=== PATIENT | male | born 1945 | race Hispanic/Latino ===

== ENCOUNTER 2017-06-02 06:21 | Day surgery (SDC) | payer MEDICARE, BC ==
[2016-02-22 17:43] VITALS: BMI 33.4
[2017-06-02] MEDS ORDERED: Iodixanol 320 MG/ML 200 ML BOTTLE IV ONE (07:19)
[2017-06-02] MEDS ORDERED: Lidocaine 2% Inj (20ml) ONE (07:19)
[2017-06-02] MEDS ORDERED: Midazolam 2 MG/2 ML VIAL ONE ×2 (07:19→08:27)
[2017-06-02] MEDS ORDERED: HEPARIN SODIUM/NS 2,000 ML IV ONE (07:19)
[2017-06-02] MEDS ORDERED: Sodium Chloride 0.9% 1,000 ML IV SCH (09:15)
[2017-06-02] MEDS ORDERED: diltiaZEM 240 mg/24 Hours CD Cap PO SCH (10:00)
[2017-06-02] MEDS ORDERED: Insulin Reg-HIGH-Coverage SC SCH (11:30)
[2017-06-02 16:26] VITALS: RESP 18
[2017-06-02 16:37] VITALS: PULSE 72
[2017-06-02 17:33] VITALS: BP 168/73; TEMP 99.3; O2SAT 95
--- NOTE | 2017-06-02 21:45 | CARD ---
APPROVED REPORT EKG Measurement Heart [id number] <Conclusion> Normal sinus rhythm Right bundle branch block Possible Inferior infarct, age undetermined Abnormal ECG
--- NOTE | 2017-06-03 08:13 | CARDCATH ---
PROCEDURE DATE: 06/02/2017 PROCEDURES: 1. Left and right coronary angiography. 2. Percutaneous coronary intervention of mid right coronary artery. 3. Left ventriculography. 4. Right femoral arteriography. 5. Angio-Seal deployment. HISTORY: This is a 71-year-old male with known coronary artery disease, status post multivessel PCI, who has had worsening exertional chest discomfort. Cardiac catheterization was advised. INDICATIONS: As above. FINDINGS: HEMODYNAMICS: Aortic pressure was 130/70. Left ventricular pressure of 130/16. CORONARY ANATOMY: 1. Left mainstem had a 30-40% proximal stenosis. 2. Left anterior descending artery had evidence of moderate calcification. The previously placed stent had evidence of mild diffuse in-stent restenosis. The septal branch had a 90% ostial stenosis as well. The diagonal branch had evidence of moderate diffuse disease. The distal left anterior descending artery had unchanged, severe 90% stenosis in the apical segment. The vessel was fairly small in that segment. 3. Left circumflex artery had evidence of patent stents in the mid segment of the vessel. There was evidence of 40% in-stent restenosis distally. The ostial circumflex had a 50% stenosis as well. 4. The right coronary artery was large and dominant. This had evidence of diffuse 40% narrowing in its proximal segment. The mid segment of the vessel had a long stented segment, which had a 90% in-stent restenosis in its distal region. The distal right coronary artery stent was patent. The posterior descending artery had mild irregularities. The posterolateral branch was fairly small. LEFT VENTRICULOGRAPHY: A hand injection was performed in the left ventricle revealing evidence of mild diffuse LV hypokinesis with an overall ejection fraction of 50%. CORONARY INTERVENTION: Given the above findings, attempted PCI of the RCA in-stent restenosis was then performed. 5000 units of intervenous heparin was administered and ACT was greater than 290 seconds during the procedure. The lesion in the RCA was successfully crossed with the use of a [place] wire. Following this, initial inflations were performed with a 3.0 x 15-mm NC balloon to 16 atmosphere for 45 seconds. Following this, the balloon was withdrawn and a 3.5 x 18-mm Resolute drug-eluting stent was advanced and inflated to 14 atmospheres for 45 seconds. There was 0% residual stenosis following the intervention. The moderate disease in proximal RCA remains relatively unchanged. MIGUEL grade 3 flow is present before and after the intervention. RIGHT FEMORAL ARTERIOGRAPHY: The right femoral arteriogram was performed in the CHAVEZ projection. This revealed no evidence of significant disease and appropriate level of arterial puncture. The puncture site was then closed with deployment of an AngioSeal device. CONCLUSIONS: 1. Severe RCA in-stent restenosis. 2. Moderate left main LAD and circumflex system disease. 3. Mildly reduced LV systolic function. 4. Successful PCI of RCA with drug-eluting stent placement as described above. RECOMMENDATIONS: Intensify medical therapy including diabetes control and smoking abstinence was strongly encouraged. Aspirin and Plavix therapy will be continued indefinitely. Followup stress testing to monitor his left coronary system disease. It is advised that should this progress, ultimate bypass surgery maybe necessary. Judah Baldwin MD cc: .
== END 2017-06-02 17:43 | disposition home or self-care (01) ==
LOC: CATH 06:21 → 2RNO 10:09 → CATH 17:43
PROVIDERS: ATTEND Internal Medicine Cardiovascular Disease
DX: T82.858A Stenosis of other vascular prosthetic devices, implants and grafts, initial encounter (principal); I25.10 Atherosclerotic heart disease of native coronary artery without angina pectoris; I10 Essential (primary) hypertension; I25.2 Old myocardial infarction; Y84.8 Other medical procedures as the cause of abnormal reaction of the patient, or of later complication, without mention of misadventure at the time of the procedure
CPT/HCPCS: 36415; 82948; 85175; 86850; 86900; 93005; 93458; 99152; 99153; C1725; C1760; C1769 ×2; C1874; C1887 ×3; C2629; C9600; J1644 ×2; J2250; J3010; J7030; J7040

== ENCOUNTER 2018-01-25 10:03 | Inpatient (IN) | payer MEDICARE, BC ==
[2018-01-25 10:03] VITALS: BMI 33.4
[2018-01-25] MEDS ORDERED: Sodium Chloride 0.9% 500 ML IV STA (10:53)
[2018-01-25] MEDS ORDERED: Morphine 4 mg/ml ISec IVP STA (10:53)
--- NOTE | 2018-01-25 11:12 | ED PDOC ---
Arrival/HPI - General Historian: Patient - History of Present Illness Narrative History of Present Illness (Text): 01/25/18 10:57 Pt is a 72 yo M with pmhx of CAD s/p 7 stents, HTN, HLD, DM, CHF who presents for abd pain. He states that the pain began about 3 days ago, which is now localized to the RLQ. He is obviously uncomfortable and wincing in pain. He states that the pain is a 10/10 without radiation and has twinges of pain that makes the pain more intense. Pt states that he is on ASA and clopidogrel and is complaint with his medications. He states that the pain worsened last night when it became a 10/10 and continued to be so until now. He denies fevers, chills, nausea, chest pain, SOB or cough. He admits to one bout of emesis earlier this AM. Pmhx:CAD s/p 7 stents, HTN, HLD, DM, CHF Pshx: Hernia repair Meds: ASA, clopidogrel All: NKDA Soc: Quit smoking 1 mo ago, no etoh or illicit drug use Fam Hx: Denies Time/Duration: < week Symptom Onset: Gradual Symptom Course: Worsening Severity Level: 10 <Elke Rivas - Last Filed: 01/25/18 14:04> <Pieter Rome - Last Filed: 01/25/18 16:19> - General Time Seen by Provider: 01/25/18 10:04 Past Medical History - Provider Review Nursing Documentation Reviewed: Yes - Infectious Disease Hx of Infectious Diseases: None - Tetanus Immunization Tetanus Immunization: Unknown - Cardiac Hx Pacemaker: No - Pulmonary Hx Respiratory Disorders: Yes (SMOKES 1 PPD QUIT 02-18-16) Hx Asthma: Yes - Neurological Hx Paralysis: No - HEENT Hx HEENT Disorder: Yes (WEARS RX GLASSES,H/O OTITIS EXTERNA) - Renal Hx Renal Disorder: No - Endocrine/Metabolic Hx Endocrine Disorders: Yes (diabetes takes po and insulin) Hx Diabetes Mellitus Type 2: Yes - Hematological/Oncological Hx Blood Transfusions: No Hx Blood Transfusion Reaction: No - Integumentary Hx Dermatological Disorder: No - Musculoskeletal/Rheumatological Hx Musculoskeletal Disorders: No - Gastrointestinal Hx Gastrointestinal Disorders: Yes (GI BLEED) Other/Comment: pt has new right and left inguinal hernias and umbilical,INGUINAL HERNIA REPAIR - Genitourinary/Gynecological Hx Genitourinary Disorders: Yes Hx Prostate Problems: Yes (ca WITH METS TO BLADDER?) - Psychiatric Hx Emotional Abuse: No Hx Physical Abuse: No Hx Substance Use: No - Surgical History Other/Comment: carpal tunnel sx right hand 5 or 6 yrs ago. Pt was hurt on the job in 1994 fx pelvis, fx ribs, fx left wrist. As a result he has chronic lower back pain and several herniated discs, he can't. remember how many, has 3 herniated discs in his neck, has received several epidurals since then, and some times his legs "give out" - Anesthesia Hx Anesthesia: Yes Hx Anesthesia Reactions: No Hx Malignant Hyperthermia: No - Suicidal Assessment Feels Threatened In Home Enviroment: No <Elke Rivas - Last Filed: 01/25/18 14:04> Family/Social History - Physician Review Nursing Documentation Reviewed: Yes Family/Social History: No Known Family HX Smoking Status: Current Some Days Smoker Hx Alcohol Use: Yes (QIT 1 YR AGO) Hx Substance Use: No Hx Substance Use Treatment: No <Elke Rivas - Last Filed: 01/25/18 14:04> Allergies/Home Meds <Elke Rivas - Last Filed: 01/25/18 14:04> <Pieter Rome - Last Filed: 01/25/18 16:19> Allergies/Adverse Reactions: Allergies No Known Allergies Allergy (Verified 02/22/16 16:26) Home Medications: Home Meds Medication Instructions Recorded Confirmed RX: Aspirin 325 mg PO DAILY 08/08/12 01/25/18 RX: Pantoprazole [Protonix EC Tab] 40 mg PO DAILY 04/19/13 01/25/18 RX: Atorvastatin [Lipitor] 80 mg PO DAILY 03/26/14 01/25/18 RX: Cholecalciferol (Vitamin D3) 1,000 iu PO DAILY 03/26/14 01/25/18 [Vitamin D3] RX: Clopidogrel [Plavix] 75 mg PO DAILY 03/26/14 01/25/18 Insulin Aspart [Novolog] 20 unit SC BID PRN 11/26/15 01/25/18 Lisinopril [Prinivil] 20 mg PO DAILY 11/26/15 01/25/18 Multivitamin [Men's Multi-Vitamin] 1 tab PO DAILY 11/26/15 01/25/18 RX: Insulin Regular [HumuLIN R] 0 unit SQ ACBD 11/26/15 01/25/18 RX: Insulin Glargine, Recombina 100 unit SC DAILY 11/26/15 01/25/18 [Lantus] Trazodone HCl 100 mg PO HS 11/26/15 01/25/18 diltiaZEM [Cardizem] 240 mg PO DAILY 11/26/15 01/25/18 Metoprolol Tartrate [Lopressor] 50 mg PO BID 02/22/16 01/25/18 Simethicone [Gas-X] 80 mg PO Q8H PRN 02/22/16 01/25/18 RX: Brinzolamide [Azopt] 1 drop OD BID 05/31/17 01/25/18 RX: Latanoprost 0.005% Opht 1 drop OD HS 05/31/17 01/25/18 [Xalatan Opht] Review of Systems - Physician Review All systems were reviewed & negative as marked: Yes - Review of Systems Constitutional: absent: Fevers Respiratory: absent: SOB, Cough Cardiovascular: absent: Chest Pain, Palpitations Gastrointestinal: Abdominal Pain (10/10 RLQ), Vomiting (Vomited earlier this morning.). absent: Nausea <Elke Rivas - Last Filed: 01/25/18 14:04> Physical Exam Temperature: Afebrile Blood Pressure: Hypertensive Pulse: Regular Respiratory Rate: Normal Appearance: Positive for: Uncomfortable Pain Distress: Moderate Mental Status: Positive for: Alert and Oriented X 3 - Systems Exam Head: Present: Atraumatic, Normocephalic Pupils: Present: PERRL Extroacular Muscles: Present: EOMI Conjunctiva: Present: Normal Respiratory/Chest: Present: Clear to Auscultation, Good Air Exchange. No: Respiratory Distress, Accessory Muscle Use, Wheezes, Rales Cardiovascular: Present: Regular Rate and Rhythm, Normal S1, S2. No: Murmurs, Rub, Gallop Abdomen: Present: Tenderness (Present in RLQ, upon light palpation. ), Distention, Normal Bowel Sounds, Rebound, Guarding, McBurney's Point Tender, Rovsing's Sign Present (Obturator sign is also positive.) Genitourinary Male: Present: Normal External Genitalia. No: Lesions, Penile Discharge, Testicle Tenderness, Erythema, Testicle Swelling Lower Extremity: Present: Normal Inspection. No: CALF TENDERNESS, Wendy's Sign, Tenderness Neurological: Present: GCS=15, Speech Normal Skin: Present: Warm, Dry, Normal Color. No: Rashes Psychiatric: Present: Alert, Oriented x 3, Normal Insight, Normal Concentration, Normal Affect, Normal Mood <Elke Rivas - Last Filed: 01/25/18 14:04> Vital Signs Reviewed: Yes Vital Signs Temp Pulse Resp BP Pulse Ox 01/25/18 10:45 97.8 F 85 18 198/103 H 98 <Pieter Rome - Last Filed: 01/25/18 16:19> Medical Decision Making ED Course and Treatment: 01/25/18 11:22 Pt is a 72 yo M with pmhx detailed above who presents for RLQ abdominal pain. Pt denies fevers, chills or nausea but has McBurney point tenderness, rovsings sign and obturator sign positive. - CBC - CMP - CT abd/pelvis w/ IV contrast - EKG - Cardiac iso - CXR - PT - PTT - Lipase - mag - UA 01/25/18 12:33 Pt was reassessed at bedside. Pts labs are grossly wnl, with the exception of adolph chappell, which is being repleted with 2gm IV 01/25/18 14:04 CT w/ IV contrast was reported by Radiologist: Acute tip appendicitis. Discussed the result with the pt and consulted and discussed the case with the surgical team. - RAD Interpretation Radiology Orders: 01/25/18 10:52 CHEST PORTABLE [RAD] Stat 01/25/18 10:53 ABD & PELVIS IV CONTRAST ONLY [CT] Stat - Medication Orders Current Medication Orders: Sodium Chloride (Sodium Chloride 0.9%) 500 mls @ 999 mls/hr IV .Q31M STA Stop: 01/25/18 11:23 Discontinued Medications Morphine Sulfate (Morphine) 4 mg IVP STAT STA Stop: 01/25/18 10:54 Ondansetron HCl (Zofran Inj) 4 mg IVP STAT STA Stop: 01/25/18 10:54 <Elke Rivas - Last Filed: 01/25/18 14:04> ED Course and Treatment: 01/25/18 11:30 Impression: 72 year old male presents to the emergency department for abdominal pain that began 3 days ago, now localized in RLQ. Patient Seen with Resident: In agreement with resident note which contains more details about the patient. Patient seen and evaluated with resident. Came up with plan and treatment together. Plan: -- CT of Abdomen/Pelvis -- EKG -- Labs -- CBC (with differential) -- Partial Thromboplastin -- Prothrombin Time -- X-Ray of chest -- Magnesium Sulfate 2gm/50 ml Water -- Morphine -- IV fluids -- Zofran Inj -- Zosyn IVPB -- Urinalysis -- Reassess and disposition Prior Visits: Notes and results from previous visits were reviewed. Progress Notes: 01/25/18 16:18 ct shows appendcitis updated pmd and surgery. - Lab Interpretations Lab Results: 01/25/18 11:19 01/25/18 11:19 Lab Results 01/25/18 11:19: Sodium 139, Potassium 3.9, Chloride 98, Carbon Dioxide 31, Anion Gap 13, BUN 14, Creatinine 0.9, Est GFR ( Amer) > 60, Est GFR (Non-Af Amer) > 60, Random Glucose 294 H, Calcium 9.5, Magnesium 0.9 L*, Total Bilirubin 0.8, AST 57, ALT 69 H, Alkaline Phosphatase 96, Lactate Dehydrogenase 561, Total Creatine Kinase 100, Troponin I 0.01 D, Total Protein 7.6, Albumin 4.3, Globulin 3.4, Albumin/Globulin Ratio 1.3, Lipase 37 01/25/18 11:19: PT 14.8 H, INR 1.28, APTT 30.6 01/25/18 11:19: WBC 8.7 D, RBC 4.48, Hgb 13.7 L, Hct 40.2 L, MCV 89.7, MCH 30.6, MCHC 34.1, RDW 13.1, Plt Count 157, MPV 12.2 H, Gran % 81.1 H, Lymph % (Auto) 11.5 L, [place] % (Auto) 7.0 H, Eos % (Auto) 0.3 L, Baso % (Auto) 0.1, Gran # 7.06 H, Lymph # (Auto) 1.0 L, [place] # (Auto) 0.6, Eos # (Auto) 0.0, Baso # (Auto) 0.01 - RAD Interpretation Narrative RAD Interpretations (Text): X-ray of chest reviewed by radiologist, shows: Dictator : Abdirahman Reyes MD Report Date : 01/25/2018 12:13:48 FINDINGS: LUNGS: No active pulmonary disease. PLEURA: No significant pleural effusion identified, no pneumothorax apparent. CARDIOVASCULAR: Mild cardiomegaly OSSEOUS STRUCTURES: No significant abnormalities. VISUALIZED UPPER ABDOMEN: Normal. OTHER FINDINGS: None. IMPRESSION: No active disease. Radiology Orders: 01/25/18 10:52 CHEST PORTABLE [RAD] Stat 01/25/18 10:53 ABD & PELVIS IV CONTRAST ONLY [CT] Stat Room Worker: Radiologist - Medication Orders Current Medication Orders: Magnesium Sulfate (Magnesium Sulfate 2 Gm/50 Ml Water) 2 gm in 50 mls @ 50 mls/hr IVPB ONCE ONE Stop: 01/25/18 12:58 Discontinued Medications Sodium Chloride (Sodium Chloride 0.9%) 500 mls @ 999 mls/hr IV .Q31M STA Stop: 01/25/18 11:23 Last Admin: 01/25/18 11:22 Dose: 999 mls/hr eMAR Start Stop Document 01/25/18 11:22 [email or web address] (Rec: 01/25/18 11:23 [email or web address] [id number]) Intravenous Solution Start Date 01/25/18 Start Time 11:23 Piperacillin Sod/Tazobactam Sod (Zosyn 3.375 In Ns 100ml) 100 mls @ 200 mls/hr IVPB STAT STA; Protocol Stop: 01/25/18 11:47 Morphine Sulfate (Morphine) 4 mg IVP STAT STA Stop: 01/25/18 10:54 Last Admin: 01/25/18 11:23 Dose: 4 mg MAR Pain Assessment Document 01/25/18 11:23 [email or web address] (Rec: 01/25/18 11:23 [email or web address] [id number]) Pain Reassessment Is this a pain reassessment? No Sleep Is patient sleeping during reassessment? No Presence of Pain Presence of Pain Yes Pain Scale Used Protocol: PSCALES Pain Scale Used Numeric Location Left, Right or Bilateral Right Pain Location Body Site Abdomen Description Description Constant Intensity of Pain at present 9 Pain Behavior Facial Grimacing Aggravating Factors Changing Position Alleviating Factors/Management Medication Techniques Alleviating Factors Medication IVP Administration Document 01/25/18 11:23 [email or web address] (Rec: 01/25/18 11:23 [email or web address] [id number]) Charges for Administration # of IVP Administrations 1 Morphine Sulfate (Morphine) 2 mg IVP STAT STA Stop: 01/25/18 12:44 Ondansetron HCl (Zofran Inj) 4 mg IVP STAT STA Stop: 01/25/18 10:54 Last Admin: 01/25/18 11:23 Dose: 4 mg IVP Administration Document 01/25/18 11:23 [email or web address] (Rec: 01/25/18 11:23 [email or web address] [id number]) Charges for Administration # of IVP Administrations 1 <Pieter Rome - Last Filed: 01/25/18 16:19> - 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 MD/DO has examined the patient and agrees with the treatment plan. - Scribe Statement The provider has reviewed the documentation as recorded by the Rogeribvipin Luciano All medical record entries made by the Bertram were at my direction and personally dictated by me. I have reviewed the chart and agree that the record accurately reflects my personal performance of the history, physical exam, medical decision making, and the department course for this patient. I have also personally directed, reviewed, and agree with the discharge instructions and disposition. <Pieter Rome - Last Filed: 01/25/18 16:19> Disposition/Present on Arrival - Present on Arrival History of DVT/PE: No History of Uncontrolled Diabetes: No Urinary Catheter: No History of Decub. Ulcer: No History Surgical Site Infection Following: None <Elke Rivas - Last Filed: 01/25/18 14:04> - Present on Arrival Any Indicators Present on Arrival: No - Disposition Have Diagnosis and Disposition been Completed?: Yes Disposition Time: 01:00 <Pieter Rome - Last Filed: 01/25/18 16:19> - Disposition Diagnosis: Acute appendicitis, Hypomagnesemia Disposition: HOSPITALIZED Patient Problems: Current Active Problems Problem Status Onset Acute appendicitis Acute Hypomagnesemia Acute Condition: FAIR
[2018-01-25] MEDS ORDERED: Piperacillin/Tazobact 3.375 gm 100 ML IVPB STA (11:18)
[2018-01-25 11:34] LABS: BASO # 0.01 K/mm3 (0.0-2.0); BASO % 0.1 % (0.0-3.0); EOS % 0.3 % (1.5-5.0); GRAN # 7.06 (1.4-6.5); GRAN % 81.1 % (50.0-68.0); HEMOGLOBIN 13.7 g/dL (14.0-18.0); LYMPH % 11.5 % (22.0-35.0); MEAN CELL VOLUME 89.7 fl (80.0-105.0); MEAN CORPUSCULAR HEMOGLOBIN 30.6 pg (25.0-35.0); MEAN CORPUSCULAR HGB CONC 34.1 g/dl (31.0-37.0); MEAN PLATELET VOLUME 12.2 fl (7.0-11.0); MONO # 0.6 (0.1-0.6); RBC 4.48 10^6/uL (3.5-6.1); RED CELL DISTRIBUTION WIDTH 13.1 % (11.5-14.5); WHITE BLOOD COUNT 8.7 10^3/ul (4.5-11.0)
[2018-01-25 11:41] LABS: INR 1.28; PARTIAL THROMBOPLASTIN TIME 30.6 Seconds (25.1-36.5); PROTHROMBIN TIME 14.8 SECONDS (9.4-12.5)
[2018-01-25 11:55] LABS: TROPONIN I 0.01 ng/mL
[2018-01-25 11:57] LABS: ALB/GLOB RATIO 1.3 (1.1-1.8); ALBUMIN 4.3 g/dL (3.0-4.8); ALT/SGPT 69 U/L (7-56); AST/SGOT 57 U/L (17-59); BLOOD UREA NITROGEN 14 mg/dL (7-21); CALCIUM 9.5 mg/dL (8.4-10.5); GFR NON-AFRICAN AMERICAN > 60; LIPASE 37 U/L (23-300)
[2018-01-25] MEDS ORDERED: Magnesium Sulfate 2 gm/50 ml 2 GM/50 ML BAG IVPB ONE (11:59)
--- NOTE | 2018-01-25 12:17 | RAD ---
Date of service: 01/25/2018 HISTORY: abd pain COMPARISON: 02/22/2016 FINDINGS: LUNGS: No active pulmonary disease. PLEURA: No significant pleural effusion identified, no pneumothorax apparent. CARDIOVASCULAR: Mild cardiomegaly OSSEOUS STRUCTURES: No significant abnormalities. VISUALIZED UPPER ABDOMEN: Normal. OTHER FINDINGS: None. IMPRESSION: No active disease.
[2018-01-25] MEDS ORDERED: Morphine 2 mg/ml ISec IVP STA (12:43)
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
--- NOTE | 2018-01-25 13:46 | CT ---
Date of service: 01/25/2018 PROCEDURE: CT Abdomen and Pelvis with contrast HISTORY: Right lower quadrant pain COMPARISON: 11/20/2016. TECHNIQUE: CT scan of the abdomen and pelvis was performed after administration of intravenous contrast. Oral contrast was not administered. Coronal and sagittal reformatted images were obtained. Contrast dose: 150 mL Omnipaque 350 Radiation dose: Total exam DLP = 1102.78 mGy-cm. This CT exam was performed using one or more of the following dose reduction techniques: Automated exposure control, adjustment of the mA and/or kV according to patient size, and/or use of iterative reconstruction technique. FINDINGS: LOWER THORAX: There is dependent atelectasis and fibrotic changes in the lung bases. LIVER: Mild hepatomegaly and fatty liver. No gross lesion or ductal dilatation. GALLBLADDER AND BILE DUCTS: No calcified gallstones. PANCREAS: Normal in size and echotexture. No gross lesion or ductal dilatation. SPLEEN: Normal in size. ADRENALS: And appearance no discrete nodule. KIDNEYS AND URETERS: Normal in size with homogeneous enhancement. No hydronephrosis. No solid mass. VASCULATURE: Atherosclerotic aortic calcifications. No aortic aneurysm. BOWEL: The small bowel loops are normal in caliber. The colon is unremarkable. No bowel dilatation or obstruction. APPENDIX: The deep of the appendix is fluid-filled, distended and measures 12 mm in diameter. There is mild wall thickening and an appendicolith in the distal appendix. There are mild inflammatory changes in the surrounding fat. No evidence for perforation or abscess. PERITONEUM: No free fluid. No free air. LYMPH NODES: No enlarged lymph nodes. BLADDER: Unremarkable. REPRODUCTIVE: Prostate gland is normal in size. BONES: No acute fracture. Advanced multilevel degenerative disc disease. OTHER FINDINGS: Bilateral fat containing inguinal hernias, larger on the left. IMPRESSION: Findings are most compatible with acute tip appendicitis. No micro perforation or abscess. Important findings were discussed with Dr. Pieter Rome on 01/25/2018 at 1:40 p.m.
[2018-01-25] MEDS ORDERED: Lactated Ringer's 1,000 ML IV SCH ×2 (14:45→15:24)
[2018-01-25] MEDS: Morphine 4 mg/ml ISec IVP PRN ×2 (15:30→20:18)
--- NOTE | 2018-01-25 15:40 | CARD ---
APPROVED REPORT Date of service: 01/25/2018 EKG Measurement Heart [id number] <Conclusion> Normal sinus rhythm Right bundle branch block Inferior infarct, age undetermined Abnormal ECG
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
[2018-01-25] MEDS: Insulin Reg-MEDIUM-Coverage SC SCH ×2 (16:39→22:11)
[2018-01-25] MEDS ORDERED: Metoprolol 1 mg/ml Inj IVP SCH (18:00)
[2018-01-25] MEDS: metroNIDAZOLE IV 500 mg/100 ml 500 MG/100 ML BAG IVPB SCH (21:25)
[2018-01-25] MEDS ORDERED: Piperacillin/Tazobact 3.375 gm 100 ML IVPB SCH (22:00)
[2018-01-26] MEDS: Morphine 4 mg/ml ISec IVP PRN ×2 (01:43→08:17)
[2018-01-26 02:10] LABS: URINE BILIRUBIN NEGATIVE (NEGATIVE); URINE BLOOD NEGATIVE (NEGATIVE); URINE GLUCOSE (UA) NEGATIVE (NEGATIVE); URINE LEUKOCYTE ESTERASE NEGATIVE Leu/uL (NEGATIVE); URINE PROTEIN TRACE mg/dL (<30 mg/dL); URINE UROBILINOGEN 0.2 E.U./dL (<1 E.U./dL)
[2018-01-26 02:15] LABS: URINE APPEARANCE CLEAR (CLEAR); URINE COLOR YELLOW (YELLOW)
[2018-01-26 02:30] LABS: URINE EPITHELIAL CELLS 0 - 2 /hpf (0-5); URINE RBC 0 - 2 /hpf (0-2); URINE WBC 0 - 2 /hpf (0-6)
[2018-01-26 02:31] LABS: URINE BACTERIA RARE (NEG)
[2018-01-26] MEDS: metroNIDAZOLE IV 500 mg/100 ml 500 MG/100 ML BAG IVPB SCH ×3 (05:02→21:57)
[2018-01-26] MEDS: Piperacillin/Tazobact 3.375 gm 100 ML IVPB SCH ×3 (05:03→21:58)
[2018-01-26 06:27] LABS: BASO # 0.01 K/mm3 (0.0-2.0); BASO % 0.2 % (0.0-3.0); EOS # 0.1 (0.0-0.7); EOS % 0.9 % (1.5-5.0); GRAN # 5.04 (1.4-6.5); GRAN % 76.3 % (50.0-68.0); HEMOGLOBIN 12.3 g/dL (14.0-18.0); LYMPH % 15.3 % (22.0-35.0); MEAN CELL VOLUME 91.8 fl (80.0-105.0); MEAN CORPUSCULAR HEMOGLOBIN 30.4 pg (25.0-35.0); MEAN CORPUSCULAR HGB CONC 33.2 g/dl (31.0-37.0); MEAN PLATELET VOLUME 11.6 fl (7.0-11.0); MONO # 0.5 (0.1-0.6); MONO % 7.3 % (1.0-6.0); RBC 4.04 10^6/uL (3.5-6.1); RED CELL DISTRIBUTION WIDTH 13.7 % (11.5-14.5); WHITE BLOOD COUNT 6.6 10^3/ul (4.5-11.0)
[2018-01-26 07:09] LABS: ALB/GLOB RATIO 1.2 (1.1-1.8); ALBUMIN 3.7 g/dL (3.0-4.8); ALT/SGPT 58 U/L (7-56); AST/SGOT 45 U/L (17-59); BLOOD UREA NITROGEN 14 mg/dL (7-21); CALCIUM 8.8 mg/dL (8.4-10.5); GFR NON-AFRICAN AMERICAN > 60
[2018-01-26] MEDS: Insulin Reg-MEDIUM-Coverage SC SCH ×3 (08:09→17:04)
[2018-01-26] MEDS: Metoprolol 1 mg/ml Inj IVP SCH ×3 (09:19→21:56)
--- NOTE | 2018-01-26 10:29 | PN ---
DATE: 01/26/2018 SUBJECTIVE: The patient was admitted yesterday with abdominal pain. The patient was diagnosed with acute appendicitis. The patient has past history of coronary artery disease, diabetes mellitus. The patient also has history of renal colic. He has had right inguinal hernia surgery in the past. The patient also has history of carpal tunnel surgery. HE HAS NO KNOWN ALLERGIES. Seen this morning. The patient is on antibiotic treatment. PHYSICAL EXAMINATION: VITAL SIGNS: Pulse is 83, blood pressure 144/80, respirations are 20, temperature 98.6. HEENT: Head is normocephalic. NECK: The thyroid is not enlarged. Carotid pulses are present. LUNGS: Trachea central. Breath sounds are vesicular. Bilateral diminished breath sounds in the lower part of chest. ABDOMEN: Soft, tenderness. The patient has tenderness in the right lower quadrant with rebound tenderness. The patient also has a positive Rovsing sign, which is characteristic of acute right-sided abdominal pain when compressing the left side of the abdomen. RECTAL: Deferred. CENTRAL NERVOUS SYSTEM: Conscious, rational, oriented. MEDICATIONS: Consist of Flagyl 500 mg every 8 hours. The patient is on insulin coverage. He is getting Ringer's lactate IV. He is n.p.o. He is on metoprolol 5 mg IV b.i.d. The patient is on morphine for pain, pantoprazole IV 40 mg daily. The patient gets Zosyn every 8 hours. ASSESSMENT AND PLAN: The patient was seen by Dr. Baldwin, the display screen fabricator and Dr. Nixon, infectious disease market research consultant. Dr. Licona is his general surgeon on the case. The patient is scheduled to have appendectomy done this morning at 10:30. The patient's clinical condition seemed to be stable at this time. He will get platelet transfusion prior to the surgery. We will follow up. Oliva Childers MD MADHURI
[2018-01-26] MEDS ORDERED: Bupivacaine 0.5% 50 ML IJ ONE (11:10)
[2018-01-26] MEDS ORDERED: Propofol 10 mg/ml Inj (20 ML) ONE (11:32)
[2018-01-26] MEDS ORDERED: Phenylephrine 10 mg/ml Inj ONE (11:33)
[2018-01-26] MEDS ORDERED: ePHEDrine 50 mg/ml Inj ONE (11:33)
[2018-01-26] MEDS ORDERED: Etomidate 20 mg/10ml Inj IV ONE (11:33)
[2018-01-26] MEDS ORDERED: Rocuronium 10 mg/ml (5 ml) ONE (11:34)
[2018-01-26] MEDS ORDERED: Sevoflurane - Inhalation Anesthetic Liq (250 ml) ONE (11:34)
[2018-01-26] MEDS ORDERED: Succinylcholine 200 mg/10 ml Inj IV ONE (11:34)
[2018-01-26] MEDS ORDERED: Labetalol 5 mg/ml Inj 20ML ONE (12:20)
[2018-01-26] MEDS ORDERED: Neostigmine Methylsulfate 3mg/3ml Syringe IV ONE (12:46)
--- NOTE | 2018-01-26 13:29 | PCM.SURG1 ---
Surgeon's Initial Post Op Note - Surgeon's Notes Surgeon: Dr. Licona Cullet Trucker: Dr. Francisco PGY3, [facility] Type of Anesthesia: General Endo Pre-Operative Diagnosis: acute appendicitis Operative Findings: same Post-Operative Diagnosis: same Operation Performed: laparoscopic appendectomy Specimen/Specimens Removed: appendix. mesoappendix. fecalith Estimated Blood Loss: EBL {In ML}: 2 Blood Products Given: N/A Drains Used: No Drains Post-Op Condition: Good Date of Surgery/Procedure: 01/26/18 Time of Surgery/Procedure: 12:30
[2018-01-26] MEDS ORDERED: Magnesium Sulfate 2 gm/50 ml 2 GM/50 ML BAG IVPB ONE (13:33)
[2018-01-26] MEDS ORDERED: Sodium Chloride 0.9% 1,000 ML IV SCH (13:45)
[2018-01-26] MEDS ORDERED: HYDROmorphone 0.5 mg/0.5 ml ISec IVP PRN (13:46)
[2018-01-26] MEDS ORDERED: HYDROmorphone 0.5 mg/0.5 ml ISec ONE ×2 (14:15→14:32)
[2018-01-26] MEDS ORDERED: Piperacillin/Tazobact 3.375 gm Inj IVPB ONE (14:28)
[2018-01-26] MEDS ORDERED: HYDROmorphone 0.5 mg/0.5 ml ISec IVP ONE (14:30)
[2018-01-26 16:48] LABS: HEMOGLOBIN 12.8 g/dL (14.0-18.0); MEAN CELL VOLUME 92.8 fl (80.0-105.0); MEAN CORPUSCULAR HEMOGLOBIN 30.6 pg (25.0-35.0); MEAN PLATELET VOLUME 11.1 fl (7.0-11.0); RBC 4.18 10^6/uL (3.5-6.1); RED CELL DISTRIBUTION WIDTH 13.7 % (11.5-14.5); WHITE BLOOD COUNT 5.6 10^3/ul (4.5-11.0)
[2018-01-26 18:41] LABS: HEPATITIS B SURFACE AG Negative (NEGATIVE)
[2018-01-26 18:47] LABS: HEPATITIS B CORE AB NEGATIVE (NEGATIVE)
[2018-01-26 18:58] LABS: HEPATITIS C ANTIBODY NEGATIVE (NEGATIVE)
[2018-01-26] MEDS: HYDROmorphone 2 mg/ml ISec IVP PRN (20:10)
[2018-01-26 20:16] LABS: HEPATITIS A IGM NEGATIVE (NEGATIVE)
--- NOTE | 2018-01-26 21:29 | CON ---
DATE: 01/26/2018 The patient is in bed in no acute distress, was seen earlier today in 364, bed 2. CHIEF COMPLAINT: Right-sided abdominal pain x3 days. HISTORY OF PRESENT ILLNESS: This is a 72-year-old male with history of diabetes mellitus, coronary artery disease, congestive heart failure, depression, morbid obesity with a BMI of 33, history of high-grade urethral cancer, bladder cancer, history of renal insufficiency, hypertension, hyperlipidemia, history of MRSA, chest wall abscess, and folliculitis, who is admitted with right-sided abdominal pain, some nausea, but no vomiting, low-grade fever. No chest pain. No shortness of breath. REVIEW OF SYSTEMS: A 12-point review of systems performed. No headaches. No blurred vision. No neck pain. No sore throat. No dysuria or frequency. No new joint or rash. No new back pain. PAST MEDICAL HISTORY: Significant for congestive heart failure, coronary artery disease, diabetes, depression, high-grade urethral cancer, bladder cancer, renal insufficiency, hypertension, hyperlipidemia, and MRSA chest wall infection. PAST SURGICAL HISTORY: Significant for a procedure by Dr. Miller, cardiac cath, stent placement, and ventral hernia repair. ALLERGIES: THE PATIENT HAS NO KNOWN ALLERGIES. MEDICATIONS: Medications at home are noted and include Lipitor, vitamins, insulin, aspirin, Lopressor, Cardizem, and lisinopril. PHYSICAL EXAMINATION: On exam, the patient is in bed, answering questions appropriately with a temperature of 99.2; heart rate of 89, was up to 94; respiratory rate of 20; blood pressure is 132/86 and was up to 198/103. Examination of HEENT is unremarkable. Neck supple. Lungs have decreased breath sounds. Heart exam, normal S1, S2. Abdominal emanation is right lower tenderness, but no rebound or guarding. No masses. LABORATORY EXAMINATION: Reveals a white count of 6.6, hemoglobin of 12, and platelets of 172. Chemistries are reviewed. Glucose is elevated and ALT is elevated. Urinalysis as noted. Microbiology is pending. The patient had a CT scan of the abdomen which shows appendicitis and a chest x-ray, which was negative, and H amaris Hudson is reviewed. ASSESSMENT AND PLAN: This is a 72-year-old male who was admitted with: 1. Acute appendicitis. Currently on Zosyn and Flagyl, most likely could use ceftriaxone. The patient is scheduled for OR today. Cultures will be ordered, blood, urine, and appendicitis. No further antibiotics after the OR is indicated. We will follow closely with you. José Miguel Nixon MD
[2018-01-27] MEDS: HYDROmorphone 2 mg/ml ISec IVP PRN (01:07)
--- NOTE | 2018-01-27 03:53 | CON ---
DATE: 01/26/2018 REQUESTING PHYSICIAN: Dr. Childers REASON FOR CONSULTATION: Preoperative cardiac evaluation. HISTORY: This is a 72-year-old man, well known to me with complex cardiac history including multivessel PCI with chronic angina, admitted with several-day history of abdominal discomfort. Abdominal CT revealed evidence of probable acute appendicitis. Possible surgical intervention is planned for later today. He has been on chronic aspirin and Plavix therapy as his last coronary stent was performed in May of this year. He has had multiple coronary stents performed over the past number of years including RCA, left circumflex, and LAD. He has had in-stent restenosis, the most recent of which was found in May of this year and repeat stenting performed. He also has significant side branch disease and chronic angina. He has been a heavy smoker for many years, having quit several months ago. He does have a history of hypertension, diabetes, and hyperlipidemia. PAST MEDICAL HISTORY: Notable for the problems mentioned above. He has also undergone radiation therapy for prostate cancer. He has a history of gastritis as well. MEDICATIONS: His current medications include IV fluids, Flagyl, metoprolol 5 mg IV b.i.d., morphine p.r.n., Protonix, and Zosyn. ALLERGIES: NONE. SOCIAL HISTORY: He is a former heavy smoker. FAMILY HISTORY: Both parents from age-related illness. REVIEW OF SYSTEMS: A 10-point review of systems is notable mainly for problems mentioned above. PHYSICAL EXAMINATION: He is an obese middle-aged man. His blood pressure 132/86 with a pulse of 80 and sinus, respirations were 16. He is afebrile. HEENT: No JVD. Chest: Bilateral scattered rhonchi heard. Heart: PMI displaced laterally with soft systolic murmur in the left sternal border. The abdomen is soft, obese with marked right lower quadrant tenderness. Bowel sounds are present. Extremities: No clubbing, cyanosis, edema. Skin: Warm and dry. Psychiatric: Normal mood and affect. Neurologic: Alert and oriented x3. No gross motor or sensory deficits noted. DIAGNOSTIC DATA: Potassium 3.7, BUN and creatinine are 14 and 0.9. Magnesium was 0.9. I repeated, it is 1.4 after replacement. White count is 6.6, hemoglobin and hematocrit are 12.3 and 37.1 with platelet count 172,000. Chest x-ray reveals mildly enlarged cardiac silhouette with clear lung briggs. Electrocardiogram reveals sinus rhythm with right bundle-branch block pattern, a prior inferior myocardial fraction pattern cannot be excluded. IMPRESSION: 1. Apparent acute appendicitis with ongoing pain. 2. Known coronary artery disease, status post multivessel PCI with chronic angina. 3. History of diabetes and hypertension. 4. History of tobacco abuse. 5. Rest of problems as noted. RECOMMENDATIONS: From a cardiac standpoint, he appears to be at moderately increased risk for perioperative cardiac complications as well as potential bleeding complications given his known coronary anatomy and continued antiplatelet therapy. If surgery is felt to be extremely urgent, his risk appears acceptable to proceed if the risk of impending sepsis, it seems the cardiac and bleeding risk certainly proceeding as planned would be reasonable. The risks was discussed with the patient, and he understands and agrees to proceed with recommendations as planned. His metoprolol will be increased to every 6 hours dosing for better cardioprotection. We will be happy to follow along and make further recommendations as needed. Judah Baldwin MD MTDRubens
[2018-01-27] MEDS: Metoprolol 1 mg/ml Inj IVP SCH (05:30)
[2018-01-27] MEDS: metroNIDAZOLE IV 500 mg/100 ml 500 MG/100 ML BAG IVPB SCH ×3 (05:32→21:48)
[2018-01-27] MEDS: Piperacillin/Tazobact 3.375 gm 100 ML IVPB SCH ×3 (05:32→21:48)
[2018-01-27] MEDS: Insulin Reg-MEDIUM-Coverage SC SCH ×4 (07:04→17:13)
[2018-01-27 07:12] LABS: ALB/GLOB RATIO 1.2 (1.1-1.8); ALBUMIN 3.4 g/dL (3.0-4.8); ALT/SGPT 51 U/L (7-56); AST/SGOT 33 U/L (17-59); BLOOD UREA NITROGEN 12 mg/dL (7-21); CALCIUM 8.3 mg/dL (8.4-10.5); GFR NON-AFRICAN AMERICAN > 60
--- NOTE | 2018-01-27 08:01 | CP.PCM.PN ---
Subjective - Date & Time of Evaluation Date of Evaluation: 01/27/18 Time of Evaluation: 07:00 - Subjective Subjective: Stable on 3R. S/P appendectomy yesterday. No CP or SOB. Post-op pain. V/S noted. PE: Lungs: clear Cor: S1S2 Abd.: soft Ext.: no edema Neuro.: alert I/O= 631/100 recorded Labs: CMP OK Objective - Vital Signs/Intake and Output Vital Signs (last 24 hours): Temp Pulse Resp BP Pulse Ox 99.2 F 94 H 20 144/87 91 L 01/26/18 21:52 01/27/18 05:30 01/26/18 16:28 01/27/18 05:30 01/26/18 16:28 - Medications Medications: Current Medications Acetaminophen (Tylenol 325mg Tab) 650 mg PO Q6H PRN PRN Reason: Pain, Mild (1-3) Last Admin: 01/26/18 20:47 Dose: 650 mg Acetaminophen (Tylenol 325mg Tab) 325 mg PO Q6H PRN PRN Reason: Headache Heparin Sodium (Porcine) (Heparin) 5,000 units SC Q8 [facility]; Protocol Hydromorphone HCl (Dilaudid) 1 mg IVP Q4H PRN PRN Reason: Pain, severe (8-10) Last Admin: 01/27/18 01:07 Dose: 1 mg Metronidazole (Flagyl) 500 mg in 100 mls @ 100 mls/hr IVPB Q8 [facility]; Protocol Last Admin: 01/27/18 05:32 Dose: 100 mls/hr Lactated Ringer's (Lactated Ringer's) 1,000 mls @ 100 mls/hr IV .Q10H [facility] Piperacillin Sod/Tazobactam Sod (Zosyn 3.375 In Ns 100ml) 100 mls @ 25 mls/hr IVPB Q8 [facility]; Protocol Stop: 02/04/18 06:01 Last Admin: 01/27/18 05:32 Dose: 25 mls/hr Insulin Human Regular (Humulin R Med) 0 units SC ACHS [facility]; Protocol Last Admin: 01/27/18 07:04 Dose: Not Given Metoprolol Tartrate (Lopressor) 5 mg IVP Q6H [facility] Last Admin: 01/27/18 05:30 Dose: 5 mg Ondansetron HCl (Zofran Inj) 4 mg IVP Q4 PRN PRN Reason: Nausea/Vomiting Last Admin: 01/27/18 01:07 Dose: 4 mg Pantoprazole Sodium (Protonix Inj) 40 mg IVP DAILY [facility] Last Admin: 01/26/18 09:18 Dose: 40 mg Zolpidem Tartrate (Ambien) 5 mg PO HS PRN PRN Reason: Insomnia - Labs Labs: 01/26/18 16:30 01/27/18 05:20 PT 14.8 SECONDS (9.4-12.5) H 01/25/18 11:19 INR 1.28 01/25/18 11:19 APTT 30.6 Seconds (25.1-36.5) 01/25/18 11:19 Assessment and Plan - Assessment and Plan (Free Text) Assessment: Acute abd., s/p appendectomy yesterday H/O CAD/Angina/[place]/PCIs HBP Diabetes HLD Former smoker Prostate cancer, XRT Plan: As per Dr. Licona/Surgical Team and Drs. Martin IV > PO metoprolol when taking PO Resume other cardiac meds when taking PO Monitor: labs, BSs, I/O, etc.
--- NOTE | 2018-01-27 08:30 | CP.PCM.PN ---
Subjective - Date & Time of Evaluation Date of Evaluation: 01/27/18 Time of Evaluation: 08:00 - Subjective Subjective: Patient is seen this morning in room 364 bed 2. He is complaining of abdominal pain. Objective - Vital Signs/Intake and Output Vital Signs (last 24 hours): Temp Pulse Resp BP Pulse Ox 98.4 F 94 H 20 144/87 94 L 01/27/18 08:16 01/27/18 08:16 01/27/18 08:16 01/27/18 08:16 01/27/18 08:16 - Medications Medications: Current Medications Acetaminophen (Tylenol 325mg Tab) 650 mg PO Q6H PRN PRN Reason: Pain, Mild (1-3) Last Admin: 01/26/18 20:47 Dose: 650 mg Acetaminophen (Tylenol 325mg Tab) 325 mg PO Q6H PRN PRN Reason: Headache Heparin Sodium (Porcine) (Heparin) 5,000 units SC Q8 [facility]; Protocol Hydromorphone HCl (Dilaudid) 1 mg IVP Q4H PRN PRN Reason: Pain, severe (8-10) Last Admin: 01/27/18 01:07 Dose: 1 mg Metronidazole (Flagyl) 500 mg in 100 mls @ 100 mls/hr IVPB Q8 [facility]; Protocol Last Admin: 01/27/18 05:32 Dose: 100 mls/hr Lactated Ringer's (Lactated Ringer's) 1,000 mls @ 100 mls/hr IV .Q10H [facility] Piperacillin Sod/Tazobactam Sod (Zosyn 3.375 In Ns 100ml) 100 mls @ 25 mls/hr IVPB Q8 [facility]; Protocol Stop: 02/04/18 06:01 Last Admin: 01/27/18 05:32 Dose: 25 mls/hr Insulin Human Regular (Humulin R Med) 0 units SC ACHS [facility]; Protocol Last Admin: 01/27/18 07:04 Dose: Not Given Metoprolol Tartrate (Lopressor) 5 mg IVP Q6H [facility] Last Admin: 01/27/18 05:30 Dose: 5 mg Ondansetron HCl (Zofran Inj) 4 mg IVP Q4 PRN PRN Reason: Nausea/Vomiting Last Admin: 01/27/18 01:07 Dose: 4 mg Pantoprazole Sodium (Protonix Inj) 40 mg IVP DAILY [facility] Last Admin: 01/26/18 09:18 Dose: 40 mg Zolpidem Tartrate (Ambien) 5 mg PO HS PRN PRN Reason: Insomnia - Labs Labs: 01/26/18 16:30 01/27/18 05:20 PT 14.8 SECONDS (9.4-12.5) H 01/25/18 11:19 INR 1.28 01/25/18 11:19 APTT 30.6 Seconds (25.1-36.5) 01/25/18 11:19 - Head Exam Head Exam: ATRAUMATIC, NORMOCEPHALIC - Respiratory Exam Respiratory Exam: Decreased Breath Sounds, NORMAL BREATHING PATTERN - Cardiovascular Exam Cardiovascular Exam: REGULAR RHYTHM, +S1, +S2 - GI/Abdominal Exam GI & Abdominal Exam: Tenderness Additional comments: diffuse tenderness - Neurological Exam Neurological Exam: Alert, Awake, CN II-XII Intact, Oriented x3 Assessment and Plan - Assessment and Plan (Free Text) Assessment: Acute appendicitis s/p lap appendectomy CAD HTN Arthritis Plan: Patient had lap appendectomy yesterday. Gangrenous appendix removed. Patient with diffuse abdominal pain and tenderness. continue IV antibiotics. continue Zofran as needed for nausea and dilaudid as needed for pain. Surgery and infectious disease are on case.
[2018-01-27] MEDS ORDERED: Oxycodone/Acetaminophen 5/325 mg Tab PO PRN (08:33)
--- NOTE | 2018-01-27 08:47 | CP.PCM.PN ---
Subjective - Date & Time of Evaluation Date of Evaluation: 01/27/18 Time of Evaluation: 07:10 - Subjective Subjective: Patient seen and examined. Reports feeling tired. Tolerated clear liquid diet. Reports incisional site pain. 700cc/24hr urine output. Objective - Vital Signs/Intake and Output Vital Signs (last 24 hours): Temp Pulse Resp BP Pulse Ox 98.4 F 94 H 20 144/87 94 L 01/27/18 08:16 01/27/18 08:16 01/27/18 08:16 01/27/18 08:16 01/27/18 08:16 Intake and Output: 01/27/18 01/27/18 06:59 18:59 Intake Total 1320 Output Total 700 Balance 620 - Medications Medications: Current Medications Aspirin (Aspirin) 325 mg PO DAILY [facility] Atorvastatin Calcium (Lipitor) 80 mg PO DAILY [facility] Clopidogrel Bisulfate (Plavix) 75 mg PO DAILY [facility] Diltiazem HCl (Cardizem Cd) 240 mg PO DAILY [facility] Heparin Sodium (Porcine) (Heparin) 5,000 units SC Q8 [facility]; Protocol Metronidazole (Flagyl) 500 mg in 100 mls @ 100 mls/hr IVPB Q8 [facility]; Protocol Last Admin: 01/27/18 05:32 Dose: 100 mls/hr Piperacillin Sod/Tazobactam Sod (Zosyn 3.375 In Ns 100ml) 100 mls @ 25 mls/hr IVPB Q8 [facility]; Protocol Stop: 02/04/18 06:01 Last Admin: 01/27/18 05:32 Dose: 25 mls/hr Insulin Human Regular (Humulin R Med) 0 units SC ACHS [facility]; Protocol Last Admin: 01/27/18 07:04 Dose: Not Given Lisinopril (Zestril) 20 mg PO DAILY [facility] Metoprolol Tartrate (Lopressor) 5 mg IVP Q6H [facility] Last Admin: 01/27/18 05:30 Dose: 5 mg Metoprolol Tartrate (Lopressor) 50 mg PO BID [facility] Ondansetron HCl (Zofran Inj) 4 mg IVP Q4 PRN PRN Reason: Nausea/Vomiting Last Admin: 01/27/18 01:07 Dose: 4 mg Oxycodone/Acetaminophen (Percocet 5/325 Mg Tab) 1 tab PO Q4H PRN PRN Reason: Pain, moderate (4-7) Stop: 01/30/18 08:34 Pantoprazole Sodium (Protonix Inj) 40 mg IVP DAILY [facility] Last Admin: 01/26/18 09:18 Dose: 40 mg Zolpidem Tartrate (Ambien) 5 mg PO HS PRN PRN Reason: Insomnia - Labs Labs: 01/26/18 16:30 01/27/18 05:20 PT 14.8 SECONDS (9.4-12.5) H 01/25/18 11:19 INR 1.28 01/25/18 11:19 APTT 30.6 Seconds (25.1-36.5) 01/25/18 11:19 - Constitutional Appears: No Acute Distress - Head Exam Head Exam: NORMOCEPHALIC - Eye Exam Eye Exam: EOMI, Normal appearance - ENT Exam ENT Exam: Mucous Membranes Moist - Respiratory Exam Respiratory Exam: NORMAL BREATHING PATTERN - Cardiovascular Exam Cardiovascular Exam: +S1, +S2 - GI/Abdominal Exam GI & Abdominal Exam: Soft, Tenderness. absent: Firm, Guarding, Rebound - Neurological Exam Neurological Exam: Alert, Awake, Oriented x3 - Psychiatric Exam Psychiatric exam: Normal Mood - Skin Skin Exam: Dry, Intact, Warm Assessment and Plan - Assessment and Plan (Free Text) Assessment: 72M s/p laparoscopic appendectomy POD1 Plan: Regular diet PO analgesics Resume ASA & Plavix Resume cardiac meds Encourage incentive spirometer Encourage ambulation I&O's Further recs per Dr. Livan Cedeno PGY3
[2018-01-27 09:18] LABS: BASO # 0.01 K/mm3 (0.0-2.0); BASO % 0.1 % (0.0-3.0); EOS % 0.3 % (1.5-5.0); GRAN % 83.3 % (50.0-68.0); LYMPH # 0.8 (1.2-3.4); LYMPH % 10.5 % (22.0-35.0); MEAN CELL VOLUME 94.1 fl (80.0-105.0); MEAN CORPUSCULAR HEMOGLOBIN 30.8 pg (25.0-35.0); MEAN CORPUSCULAR HGB CONC 32.7 g/dl (31.0-37.0); MEAN PLATELET VOLUME 11.9 fl (7.0-11.0); MONO # 0.4 (0.1-0.6); MONO % 5.8 % (1.0-6.0); RBC 3.9 10^6/uL (3.5-6.1); RED CELL DISTRIBUTION WIDTH 13.8 % (11.5-14.5); WHITE BLOOD COUNT 7.2 10^3/ul (4.5-11.0)
[2018-01-27] MEDS: diltiaZEM 240 mg/24 Hours CD Cap PO SCH (09:47)
[2018-01-27] MEDS ORDERED: DILTIAZEM 240 MG PO SCH (10:00)
[2018-01-27 12:59] LABS: BASO # 0.01 K/mm3 (0.0-2.0); BASO % 0.1 % (0.0-3.0); EOS # 0.1 (0.0-0.7); GRAN # 6.95 (1.4-6.5); GRAN % 83.6 % (50.0-68.0); HEMOGLOBIN 12.4 g/dL (14.0-18.0); LYMPH # 0.9 (1.2-3.4); LYMPH % 10.6 % (22.0-35.0); MEAN CELL VOLUME 93.7 fl (80.0-105.0); MEAN CORPUSCULAR HEMOGLOBIN 30.2 pg (25.0-35.0); MEAN CORPUSCULAR HGB CONC 32.3 g/dl (31.0-37.0); MEAN PLATELET VOLUME 11.1 fl (7.0-11.0); MONO # 0.4 (0.1-0.6); MONO % 4.7 % (1.0-6.0); RBC 4.1 10^6/uL (3.5-6.1); RED CELL DISTRIBUTION WIDTH 13.5 % (11.5-14.5); WHITE BLOOD COUNT 8.3 10^3/ul (4.5-11.0)
[2018-01-27 13:08] LABS: BLOOD UREA NITROGEN 12 mg/dL (7-21); CALCIUM 8.5 mg/dL (8.4-10.5); GFR NON-AFRICAN AMERICAN > 60
--- NOTE | 2018-01-27 15:22 | PN ---
DATE: 01/27/2018 SUBJECTIVE: The patient is in bed, in no acute distress, nontoxic. PHYSICAL EXAMINATION: VITAL SIGNS: On exam, temperature is 97, blood pressure is 120/70, respiratory rate of 16. HEENT: Examination of HEENT is unremarkable. NECK: Supple. LUNGS: Have decreased breath sounds. HEART: Normal S1, S2. ABDOMEN: Soft, nontender. LABORATORY DATA: Laboratory examination reveals a white count of 8.3, hemoglobin of 12, platelets of 193. Chemistries are noted and BUN of 12, creatinine of 0.8. Urinalysis is noted. Serology is reviewed. Microbiology reveals blood cultures negative, urine cultures negative. ASSESSMENT AND PLAN: A 72-year-old male who was seen earlier this morning, who was taken to the operating room by Dr. Vel Licona yesterday. The patient has a history of diabetes mellitus, coronary artery disease, congestive heart failure, depression, obesity, body mass index of 33, history of high-grade urethral cancer, bladder cancer, renal insufficiency, hypertension, hyperlipidemia, history of methicillin-resistant Staphylococcus aureus chest wall abscess and folliculitis, who is now admitted with right-sided abdominal pain and found to have appendicitis, was taken to the operating room with acute appendicitis and had status post appendectomy. Today is postop day #1. Currently on Zosyn. Waiting for operating room culture and pathology and gross report. The patient's postoperative diagnosis is appendicitis. Verbally, I was told that was gangrenous appendicitis and the patient had a laparoscopic appendectomy. We will continue Zosyn for now. The patient has still significant amount of pain today postoperatively. Although, no fevers and leukocytosis have been reported at this time. José Miguel Nixon MD
[2018-01-27] MEDS: HYDROmorphone 1 mg/ml ISec IVP PRN ×2 (16:30→21:49)
[2018-01-28] MEDS: Insulin Reg-MEDIUM-Coverage SC SCH ×5 (02:33→21:53)
[2018-01-28] MEDS: metroNIDAZOLE IV 500 mg/100 ml 500 MG/100 ML BAG IVPB SCH (06:13)
[2018-01-28] MEDS: Piperacillin/Tazobact 3.375 gm 100 ML IVPB SCH ×3 (06:14→21:33)
[2018-01-28] MEDS: HYDROmorphone 1 mg/ml ISec IVP PRN ×2 (06:20→20:32)
[2018-01-28 07:53] LABS: BLOOD UREA NITROGEN 13 mg/dL (7-21); CALCIUM 8.5 mg/dL (8.4-10.5); GFR NON-AFRICAN AMERICAN > 60
--- NOTE | 2018-01-28 08:24 | CP.PCM.PN ---
Subjective - Date & Time of Evaluation Date of Evaluation: 01/28/18 Time of Evaluation: 07:00 - Subjective Subjective: Stable on 3R. S/P appendectomy 01/26. No CP or SOB. Still abd. pain. + flatus. Taking small amts PO, no appetite. V/S noted. PE: Lungs: clear Cor: S1S2 Abd.: tender Ext.: no edema Neuro.: alert I/O= 960/800 recorded Labs: Mg.++, BMP OK BC X2 NG at 24 hrs. Urine C+S: NG Objective - Vital Signs/Intake and Output Vital Signs (last 24 hours): Temp Pulse Resp BP Pulse Ox 99 F 81 20 126/68 91 L 01/28/18 00:00 01/28/18 06:00 01/28/18 00:00 01/28/18 00:00 01/28/18 00:00 Intake and Output: 01/28/18 01/28/18 06:59 18:59 Intake Total 960 Output Total 800 Balance 160 - Medications Medications: Current Medications Aspirin (Aspirin) 325 mg PO DAILY [facility] Last Admin: 01/27/18 09:47 Dose: 325 mg Atorvastatin Calcium (Lipitor) 80 mg PO DAILY [facility] Last Admin: 01/27/18 09:48 Dose: 80 mg Clopidogrel Bisulfate (Plavix) 75 mg PO DAILY [facility] Last Admin: 01/27/18 09:50 Dose: 75 mg Diltiazem HCl (Cardizem Cd) 240 mg PO DAILY [facility] Last Admin: 01/27/18 09:47 Dose: 240 mg Docusate Sodium (Colace) 100 mg PO BID [facility] Last Admin: 01/27/18 17:12 Dose: 100 mg Heparin Sodium (Porcine) (Heparin) 5,000 units SC Q8 [facility]; Protocol Last Admin: 01/28/18 06:12 Dose: 5,000 units Hydromorphone HCl (Dilaudid) 1 mg IVP Q4H PRN PRN Reason: Pain, severe (8-10) Last Admin: 01/28/18 06:20 Dose: 1 mg Piperacillin Sod/Tazobactam Sod (Zosyn 3.375 In Ns 100ml) 100 mls @ 25 mls/hr IVPB Q8 [facility]; Protocol Stop: 02/04/18 06:01 Last Admin: 01/28/18 06:14 Dose: 25 mls/hr Insulin Human Regular (Humulin R Med) 0 units SC ACHS [facility]; Protocol Last Admin: 01/28/18 02:33 Dose: Not Given Lisinopril (Zestril) 20 mg PO DAILY [facility] Last Admin: 01/27/18 09:52 Dose: 20 mg Metoprolol Tartrate (Lopressor) 50 mg PO BID [facility] Last Admin: 01/27/18 17:13 Dose: 50 mg Ondansetron HCl (Zofran Inj) 4 mg IVP Q4 PRN PRN Reason: Nausea/Vomiting Last Admin: 01/27/18 21:49 Dose: 4 mg Oxycodone/Acetaminophen (Percocet 5/325 Mg Tab) 1 tab PO Q4H PRN PRN Reason: Pain, moderate (4-7) Stop: 01/30/18 08:34 Last Admin: 01/27/18 09:49 Dose: 1 tab Pantoprazole Sodium (Protonix Inj) 40 mg IVP DAILY [facility] Last Admin: 01/27/18 09:50 Dose: 40 mg Polyethylene Glycol (Miralax) 17 gm PO DAILY [facility] Zolpidem Tartrate (Ambien) 5 mg PO HS PRN PRN Reason: Insomnia Last Admin: 01/28/18 04:05 Dose: 5 mg - Labs Labs: 01/27/18 12:50 01/28/18 06:00 PT 14.8 SECONDS (9.4-12.5) H 01/25/18 11:19 INR 1.28 01/25/18 11:19 APTT 30.6 Seconds (25.1-36.5) 01/25/18 11:19 Assessment and Plan - Assessment and Plan (Free Text) Assessment: Acute abd., s/p appendectomy yesterday. Continued abd. pain. H/O CAD/Angina/[place]/PCIs HBP Diabetes HLD Former smoker Prostate cancer, XRT Plan: As per Dr. Licona/Surgical Team, Drs. Martin and FAVIOLA. Continue cardiac meds Monitor: labs, BSs, I/O, etc.
--- NOTE | 2018-01-28 09:02 | CP.PCM.PN ---
Subjective - Date & Time of Evaluation Date of Evaluation: 01/28/18 Time of Evaluation: 06:45 - Subjective Subjective: Patient seen and examined. No acute events over night. Reports passing flatus and voiding. Denies BM. Denies n/v. Patient complaining of RLQ pain. States analgesics are alleviating pain. Reports using incentive spirometer. Objective - Vital Signs/Intake and Output Vital Signs (last 24 hours): Temp Pulse Resp BP Pulse Ox 98 F 84 19 130/63 98 01/28/18 06:00 01/28/18 06:00 01/28/18 06:00 01/28/18 06:00 01/28/18 06:00 Intake and Output: 01/28/18 01/28/18 06:59 18:59 Intake Total 960 Output Total 800 Balance 160 - Medications Medications: Current Medications Aspirin (Aspirin) 325 mg PO DAILY [facility] Last Admin: 01/27/18 09:47 Dose: 325 mg Atorvastatin Calcium (Lipitor) 80 mg PO DAILY [facility] Last Admin: 01/27/18 09:48 Dose: 80 mg Clopidogrel Bisulfate (Plavix) 75 mg PO DAILY [facility] Last Admin: 01/27/18 09:50 Dose: 75 mg Diltiazem HCl (Cardizem Cd) 240 mg PO DAILY [facility] Last Admin: 01/27/18 09:47 Dose: 240 mg Docusate Sodium (Colace) 100 mg PO BID [facility] Last Admin: 01/27/18 17:12 Dose: 100 mg Heparin Sodium (Porcine) (Heparin) 5,000 units SC Q8 [facility]; Protocol Last Admin: 01/28/18 06:12 Dose: 5,000 units Hydromorphone HCl (Dilaudid) 1 mg IVP Q4H PRN PRN Reason: Pain, severe (8-10) Last Admin: 01/28/18 06:20 Dose: 1 mg Piperacillin Sod/Tazobactam Sod (Zosyn 3.375 In Ns 100ml) 100 mls @ 25 mls/hr IVPB Q8 [facility]; Protocol Stop: 02/04/18 06:01 Last Admin: 01/28/18 06:14 Dose: 25 mls/hr Insulin Human Regular (Humulin R Med) 0 units SC ACHS [facility]; Protocol Last Admin: 01/28/18 02:33 Dose: Not Given Lisinopril (Zestril) 20 mg PO DAILY [facility] Last Admin: 01/27/18 09:52 Dose: 20 mg Metoprolol Tartrate (Lopressor) 50 mg PO BID [facility] Last Admin: 01/27/18 17:13 Dose: 50 mg Ondansetron HCl (Zofran Inj) 4 mg IVP Q4 PRN PRN Reason: Nausea/Vomiting Last Admin: 01/27/18 21:49 Dose: 4 mg Oxycodone/Acetaminophen (Percocet 5/325 Mg Tab) 1 tab PO Q4H PRN PRN Reason: Pain, moderate (4-7) Stop: 01/30/18 08:34 Last Admin: 01/27/18 09:49 Dose: 1 tab Pantoprazole Sodium (Protonix Inj) 40 mg IVP DAILY [facility] Last Admin: 01/27/18 09:50 Dose: 40 mg Polyethylene Glycol (Miralax) 17 gm PO DAILY [facility] Zolpidem Tartrate (Ambien) 5 mg PO HS PRN PRN Reason: Insomnia Last Admin: 01/28/18 04:05 Dose: 5 mg - Labs Labs: 01/27/18 12:50 01/28/18 06:00 PT 14.8 SECONDS (9.4-12.5) H 01/25/18 11:19 INR 1.28 01/25/18 11:19 APTT 30.6 Seconds (25.1-36.5) 01/25/18 11:19 - Constitutional Appears: No Acute Distress - Head Exam Head Exam: NORMOCEPHALIC - Eye Exam Eye Exam: EOMI, Normal appearance - ENT Exam ENT Exam: Mucous Membranes Moist - Respiratory Exam Respiratory Exam: NORMAL BREATHING PATTERN - Cardiovascular Exam Cardiovascular Exam: +S1, +S2 - GI/Abdominal Exam GI & Abdominal Exam: Distended, Soft, Tenderness. absent: Firm, Guarding, Rigid, Rebound Additional comments: RLQ tenderness - Neurological Exam Neurological Exam: Alert, Awake, Oriented x3 - Psychiatric Exam Psychiatric exam: Normal Mood - Skin Skin Exam: Dry, Intact, Warm Assessment and Plan - Assessment and Plan (Free Text) Assessment: 72M s/p laparoscopic appendectomy POD 2 Plan: C/w regular diet Stool softeners C/w cardiac meds DVT ppx Encourage incentive spirometer use Out of bed to chair Encourage ambulation C/w PT Further recs per Dr. Livan Cedeno PGY3
[2018-01-28] MEDS: diltiaZEM 240 mg/24 Hours CD Cap PO SCH (09:17)
[2018-01-28] MEDS: POLYETHYLENE GLYCOL 3350 17 GM/Dose PACKET PO SCH (09:19)
[2018-01-28 09:20] LABS: BASO # 0.01 K/mm3 (0.0-2.0); BASO % 0.1 % (0.0-3.0); EOS # 0.1 (0.0-0.7); EOS % 0.4 % (1.5-5.0); GRAN # 9.93 (1.4-6.5); GRAN % 88.8 % (50.0-68.0); HEMOGLOBIN 11.6 g/dL (14.0-18.0); LYMPH # 0.6 (1.2-3.4); LYMPH % 5.7 % (22.0-35.0); MEAN CORPUSCULAR HEMOGLOBIN 30.4 pg (25.0-35.0); MEAN CORPUSCULAR HGB CONC 32.4 g/dl (31.0-37.0); MEAN PLATELET VOLUME 12.2 fl (7.0-11.0); MONO # 0.6 (0.1-0.6); RBC 3.81 10^6/uL (3.5-6.1); RED CELL DISTRIBUTION WIDTH 13.8 % (11.5-14.5); WHITE BLOOD COUNT 11.2 10^3/ul (4.5-11.0)
--- NOTE | 2018-01-28 10:23 | PN ---
DATE: 01/28/2018 LOCATION: The patient is in [facility] in [place] room 364, bed 2. SUBJECTIVE: The patient was admitted with acute appendicitis. He had laparoscopic appendectomy, diagnosed gangrenous appendix. The patient has past history of coronary artery disease, multiple stents in the coronary arteries. The patient also has history of diabetes mellitus, insulin dependent, and also the patient has history of hypertension and degenerative arthritis. The patient has history of lumbar neuritis, past fracture of hip and pelvis. The patient is seen this morning. He was in discomfort, but he was taken out of bed and put in the chair this morning. PHYSICAL EXAMINATION: VITAL SIGNS: His pulse is 81, blood pressure 130/70, respirations are 20, O2 sat is 91% on room air. HEENT: The patient's head is normocephalic. NECK: The thyroid is not enlarged. JVP is flat. Carotid pulses are present. HEART: Normal sinus rhythm. S1, S2 present. LUNGS: Trachea central. Breath sounds vesicular, diminished bilaterally, basally. ABDOMEN: Soft. Liver, spleen not palpable. The patient has tenderness and distention of the abdomen, the tenderness is markedly reduced from 3 days ago since the patient had the appendectomy. CENTRAL NERVOUS SYSTEM: No focal deficits. MEDICATIONS: The patient's medication list consists of Ambien for sleep, the patient is on aspirin 325 daily. The patient is on Cardizem 240 mg daily, Colace, Dilaudid 1 mg every 4 hours p.r.n. for pain, insulin coverage for hyperglycemia, Lipitor 80 mg daily, metoprolol 50 mg daily. The patient is on Plavix 75 mg daily, pantoprazole 40 mg daily, lisinopril 20 mg daily. On a diabetic heart-healthy diet. The patient's condition is improving slowly, he is still acutely ill. His medication, antibiotic, he is on Zosyn 3.375 mg every 8 hours. The patient's overall prognosis is guarded at this point. The patient is still acute and he needs further medical management. We will follow up. Oliva Childers MD [facility] # [id number] MTDD
--- NOTE | 2018-01-28 20:14 | PN ---
DATE: 01/28/2018 SUBJECTIVE: The patient is in bed, in no acute distress, nontoxic. PHYSICAL EXAMINATION: GENERAL: Patient is comfortable, answering questions. He is asking for better pain medication. He has no fevers, no chills. VITAL SIGNS: Temperature is 98, blood pressure is 150/70, heart rate of 98, respiratory rate of 19. HEENT: Unremarkable. NECK: Supple. LUNGS: Have decreased breath sounds. HEART: Normal S1, S2. ABDOMINAL: Mild tenderness. No rebound. No guarding. No masses. LABORATORY EXAMINATION: Reveals a white count of 11,200, hemoglobin of 11, platelets of 197. Chemistries reveals a BUN of 13, creatinine of 0.9. LFTs are noted. Serology is negative. Microbiology reveals the blood cultures are negative. Urine cultures are negative. Appendix has no anaerobes. Dr. Francisco's progress note is reviewed. Pathology of the appendix is acute suppurative appendicitis with perforation and periappendicitis. ASSESSMENT AND PLAN: A 72-year-old who was seen earlier today. Still having some abdominal pain is a concern, mild leukocytosis. The patient has morbid obesity with BMI of 33, history of urethral cancer, bladder cancer, renal insufficiency, hypertension, hyperlipidemia, history of methicillin-resistant Staphylococcus aureus chest wall infection and abscess and folliculitis admitted with acute appendicitis status post laparoscopic appendectomy postoperative day #2 for a perforated appendix, currently on Zosyn. May need to repeat CAT scan to rule out any leak and it is too early for a collection. He is not having any fevers. We will continue Zosyn for now. Follow the WBC count and we will make further recommendations. José Miguel Nixon MD
[2018-01-28] MEDS ORDERED: HYDROmorphone 0.5 mg/0.5 ml ISec IVP PRN (22:28)
[2018-01-29] MEDS: Piperacillin/Tazobact 3.375 gm 100 ML IVPB SCH ×2 (07:42→13:01)
[2018-01-29] MEDS: Insulin Reg-MEDIUM-Coverage SC SCH ×2 (07:44→12:01)
--- NOTE | 2018-01-29 07:50 | CP.PCM.PN ---
Subjective - Date & Time of Evaluation Date of Evaluation: 01/29/18 Time of Evaluation: 06:45 - Subjective Subjective: Patient seen and examined. No acute events over night. Reports passing flatus. Denies n/v. No BM as of yet. Objective - Vital Signs/Intake and Output Vital Signs (last 24 hours): Temp Pulse Resp BP Pulse Ox 98.6 F 79 20 156/78 H 98 01/29/18 00:00 01/29/18 06:00 01/29/18 00:00 01/29/18 00:00 01/28/18 06:00 Intake and Output: 01/29/18 01/29/18 06:59 18:59 Intake Total 1200 Output Total 350 Balance 850 - Medications Medications: Current Medications Aspirin (Aspirin) 325 mg PO DAILY [facility] Last Admin: 01/28/18 09:16 Dose: 325 mg Atorvastatin Calcium (Lipitor) 80 mg PO DAILY [facility] Last Admin: 01/28/18 09:18 Dose: 80 mg Clopidogrel Bisulfate (Plavix) 75 mg PO DAILY [facility] Last Admin: 01/28/18 09:19 Dose: 75 mg Diltiazem HCl (Cardizem Cd) 240 mg PO DAILY [facility] Last Admin: 01/28/18 09:17 Dose: 240 mg Docusate Sodium (Colace) 100 mg PO BID [facility] Last Admin: 01/28/18 17:16 Dose: 100 mg Heparin Sodium (Porcine) (Heparin) 5,000 units SC Q8 [facility]; Protocol Last Admin: 01/29/18 07:42 Dose: 5,000 units Hydromorphone HCl (Dilaudid) 0.5 mg IVP Q4H PRN PRN Reason: Pain, severe (8-10) Piperacillin Sod/Tazobactam Sod (Zosyn 3.375 In Ns 100ml) 100 mls @ 25 mls/hr IVPB Q8 [facility]; Protocol Stop: 02/04/18 06:01 Last Admin: 01/29/18 07:42 Dose: 25 mls/hr Insulin Human Regular (Humulin R Med) 0 units SC ACHS [facility]; Protocol Last Admin: 01/28/18 21:53 Dose: Not Given Lisinopril (Zestril) 20 mg PO DAILY [facility] Last Admin: 01/28/18 09:19 Dose: 20 mg Metoprolol Tartrate (Lopressor) 50 mg PO BID [facility] Last Admin: 01/28/18 17:17 Dose: 50 mg Ondansetron HCl (Zofran Inj) 4 mg IVP Q4 PRN PRN Reason: Nausea/Vomiting Last Admin: 01/27/18 21:49 Dose: 4 mg Oxycodone/Acetaminophen (Percocet 5/325 Mg Tab) 1 tab PO Q4H PRN PRN Reason: Pain, moderate (4-7) Stop: 01/30/18 08:34 Last Admin: 01/27/18 09:49 Dose: 1 tab Pantoprazole Sodium (Protonix Inj) 40 mg IVP DAILY [facility] Last Admin: 01/28/18 09:19 Dose: 40 mg Polyethylene Glycol (Miralax) 17 gm PO DAILY [facility] Last Admin: 01/28/18 09:19 Dose: 17 gm Zolpidem Tartrate (Ambien) 5 mg PO HS PRN PRN Reason: Insomnia Last Admin: 01/28/18 21:34 Dose: 5 mg - Labs Labs: 01/28/18 06:30 01/28/18 06:00 PT 14.8 SECONDS (9.4-12.5) H 01/25/18 11:19 INR 1.28 01/25/18 11:19 APTT 30.6 Seconds (25.1-36.5) 01/25/18 11:19 - Constitutional Appears: No Acute Distress - Head Exam Head Exam: NORMOCEPHALIC - Eye Exam Eye Exam: EOMI, Normal appearance - ENT Exam ENT Exam: Mucous Membranes Moist - Respiratory Exam Respiratory Exam: NORMAL BREATHING PATTERN - Cardiovascular Exam Cardiovascular Exam: +S1, +S2 - GI/Abdominal Exam GI & Abdominal Exam: Soft, Tenderness Additional comments: RLQ tenderness - Neurological Exam Neurological Exam: Alert, Awake, Oriented x3 - Skin Skin Exam: Dry, Intact, Warm Assessment and Plan - Assessment and Plan (Free Text) Assessment: 72M s/p laparoscopic appendectomy POD 3 Plan: F/u AM labs Regular diet Stool softeners and laxative Encourage OOB to chair encourage ambulation Furthere recs per Dr. Livan Cedeno PGY3
--- NOTE | 2018-01-29 08:42 | CP.PCM.PN ---
Subjective - Date & Time of Evaluation Date of Evaluation: 01/29/18 Time of Evaluation: 08:00 - Subjective Subjective: Patient is seen this morning. He says that he has not had a bowel movement since the surgery. He is also feeling very anxious. Objective - Vital Signs/Intake and Output Vital Signs (last 24 hours): Temp Pulse Resp BP Pulse Ox 98.3 F 86 19 152/70 H 93 L 01/29/18 08:28 01/29/18 08:28 01/29/18 08:28 01/29/18 08:28 01/29/18 08:28 Intake and Output: 01/29/18 01/29/18 06:59 18:59 Intake Total 1200 Output Total 350 Balance 850 - Medications Medications: Current Medications Alprazolam (Xanax) 0.25 mg PO TID [facility]; Protocol Aspirin (Aspirin) 325 mg PO DAILY [facility] Last Admin: 01/28/18 09:16 Dose: 325 mg Atorvastatin Calcium (Lipitor) 80 mg PO DAILY [facility] Last Admin: 01/28/18 09:18 Dose: 80 mg Clopidogrel Bisulfate (Plavix) 75 mg PO DAILY [facility] Last Admin: 01/28/18 09:19 Dose: 75 mg Diltiazem HCl (Cardizem Cd) 240 mg PO DAILY [facility] Last Admin: 01/28/18 09:17 Dose: 240 mg Docusate Sodium (Colace) 100 mg PO BID [facility] Last Admin: 01/28/18 17:16 Dose: 100 mg Heparin Sodium (Porcine) (Heparin) 5,000 units SC Q8 [facility]; Protocol Last Admin: 01/29/18 07:42 Dose: 5,000 units Hydromorphone HCl (Dilaudid) 0.5 mg IVP Q4H PRN PRN Reason: Pain, severe (8-10) Piperacillin Sod/Tazobactam Sod (Zosyn 3.375 In Ns 100ml) 100 mls @ 25 mls/hr IVPB Q8 [facility]; Protocol Stop: 02/04/18 06:01 Last Admin: 01/29/18 07:42 Dose: 25 mls/hr Insulin Detemir (Levemir) 30 unit SC HS [facility] Insulin Human Regular (Humulin R Med) 0 units SC ACHS [facility]; Protocol Last Admin: 01/28/18 21:53 Dose: Not Given Lisinopril (Zestril) 20 mg PO DAILY [facility] Last Admin: 01/28/18 09:19 Dose: 20 mg Metoprolol Tartrate (Lopressor) 50 mg PO BID [facility] Last Admin: 01/28/18 17:17 Dose: 50 mg Ondansetron HCl (Zofran Inj) 4 mg IVP Q4 PRN PRN Reason: Nausea/Vomiting Last Admin: 01/27/18 21:49 Dose: 4 mg Oxycodone/Acetaminophen (Percocet 5/325 Mg Tab) 1 tab PO Q4H PRN PRN Reason: Pain, moderate (4-7) Stop: 01/30/18 08:34 Last Admin: 01/27/18 09:49 Dose: 1 tab Pantoprazole Sodium (Protonix Inj) 40 mg IVP DAILY [facility] Last Admin: 01/28/18 09:19 Dose: 40 mg Polyethylene Glycol (Miralax) 17 gm PO DAILY [facility] Last Admin: 01/28/18 09:19 Dose: 17 gm Zolpidem Tartrate (Ambien) 5 mg PO HS PRN PRN Reason: Insomnia Last Admin: 01/28/18 21:34 Dose: 5 mg - Labs Labs: 01/28/18 06:30 01/28/18 06:00 PT 14.8 SECONDS (9.4-12.5) H 01/25/18 11:19 INR 1.28 01/25/18 11:19 APTT 30.6 Seconds (25.1-36.5) 01/25/18 11:19 - Constitutional Appears: No Acute Distress - Head Exam Head Exam: ATRAUMATIC, NORMOCEPHALIC - Respiratory Exam Respiratory Exam: Clear to Ausculation Bilateral, NORMAL BREATHING PATTERN - Cardiovascular Exam Cardiovascular Exam: REGULAR RHYTHM, +S1, +S2 - GI/Abdominal Exam GI & Abdominal Exam: Soft, Tenderness Additional comments: mild diffuse tenderness - Extremities Exam Extremities Exam: Normal Inspection - Neurological Exam Neurological Exam: Alert, Awake, CN II-XII Intact, Oriented x3 Assessment and Plan - Assessment and Plan (Free Text) Assessment: Acute appendicitis with gangrene s/p lap appendectomy HTN CAD Arthritis DMII Plan: Patient is constipated. Will order dulcolax suppository. continue Protonix. continue antibiotics as per infectious disease. Patient may be out of bed to chair. continue pain medication as needed.
[2018-01-29] MEDS: diltiaZEM 240 mg/24 Hours CD Cap PO SCH (09:38)
[2018-01-29] MEDS: POLYETHYLENE GLYCOL 3350 17 GM/Dose PACKET PO SCH (09:41)
[2018-01-29 09:46] LABS: BASO # 0.01 K/mm3 (0.0-2.0); BASO % 0.1 % (0.0-3.0); EOS # 0.1 (0.0-0.7); EOS % 1.4 % (1.5-5.0); GRAN # 7.09 (1.4-6.5); GRAN % 85.2 % (50.0-68.0); HEMOGLOBIN 11.8 g/dL (14.0-18.0); LYMPH # 0.7 (1.2-3.4); MEAN CORPUSCULAR HEMOGLOBIN 30.6 pg (25.0-35.0); MEAN CORPUSCULAR HGB CONC 33.2 g/dl (31.0-37.0); MEAN PLATELET VOLUME 11.4 fl (7.0-11.0); MONO # 0.4 (0.1-0.6); MONO % 5.3 % (1.0-6.0); RBC 3.86 10^6/uL (3.5-6.1); RED CELL DISTRIBUTION WIDTH 13.4 % (11.5-14.5); WHITE BLOOD COUNT 8.3 10^3/ul (4.5-11.0)
[2018-01-29 09:55] LABS: BLOOD UREA NITROGEN 15 mg/dL (7-21); CALCIUM 8.7 mg/dL (8.4-10.5); GFR NON-AFRICAN AMERICAN > 60
[2018-01-29 17:09] VITALS: BP 127/84; PULSE 92; RESP 20; TEMP 98; O2SAT 100
--- NOTE | 2018-01-29 17:36 | PN ---
DATE: 01/29/2018 SUBJECTIVE: The patient is seen lying in bed on 3R. He states he feels somewhat weak. He has not been ambulating. His abdominal pain has improved. He has not moved his bowels. CURRENT MEDICATIONS: Include aspirin, Ambien, Cardizem CD 240 mg daily, Dilaudid as needed, subcutaneous heparin, insulin, Lipitor, metoprolol 50 mg b.i.d., MiraLax, Plavix, Protonix, Zestril 20 mg daily, and Zosyn. OBJECTIVE: GENERAL: He is an obese middle-aged man. VITAL SIGNS: Blood pressure is 150/70 with a pulse of 86, respirations are 16. He is afebrile. HEENT: No JVD. CHEST: A few scattered rhonchi. HEART: Distant tones noted. ABDOMEN: Soft, distended. Bowel sounds are present. EXTREMITIES: No edema. DIAGNOSTIC DATA: Potassium 4.2, BUN and creatinine 15 and 0.9, glucose 271. White count 8.3, hematocrit 11.8, 35.5 with platelet count of 198,000. IMPRESSION: 1. Status post laparoscopic appendectomy, clinically stable. 2. Coronary artery disease status post multivessel percutaneous coronary intervention with no recent angina or perioperative cardiac complication. 3. History of hypertension, diabetes. 4. Rest of problems as noted. RECOMMENDATIONS: His current medications should be continued for now. Continue aspirin, Plavix therapy is advised given his prior stenting with in the past year. He should be gotten out of bed and ambulated as able. We will be happy to follow him and make further recommendations as needed. Judah Baldwin MD
--- NOTE | 2018-01-29 19:31 | PN ---
DATE: 01/29/2018 SUBJECTIVE: The patient is in bed, in no acute distress. PHYSICAL EXAMINATION: VITAL SIGNS: Temperature is 98, blood pressure is 120/70, respiratory rate of 20. HEENT: Unremarkable. NECK: Supple. LUNGS: Have decreased breath sounds. HEART: Normal S1, S2. ABDOMINAL: Soft. LABORATORY EXAMINATION: Reveals a white count of 8.3, BUN of 15, creatinine of 0.9. Urinalysis is noted. Serology is noted. Microbiology reveals no anaerobes isolated from the appendix. Blood cultures are negative. Urine cultures are negative. ASSESSMENT AND PLAN: A 72-year-old who was seen early this morning. He has improved. His abdominal pain is improved. Leukocytosis is improved with history of urethral cancer, bladder cancer, renal insufficiency, hypertension, hyperlipidemia, history of methicillin-resistant Staphylococcus aureus chest wall infection in the past who is admitted this admission with abdominal pain, found to have acute appendicitis status post laparoscopic appendectomy postprocedure day #3. Found to have pathology of perforated appendix on Zosyn. The patient is doing better this morning. Dr. Childers's note is reviewed on Zosyn. José Miguel Nixon MD
[2018-01-29] MEDS ORDERED: Insulin Detemir 100 units/ml Vial (Levemir) SC SCH (22:00)
--- NOTE | 2018-01-31 04:47 | DS ---
BRIEF HISTORY: This is a 72-year-old male, with history of coronary artery disease, status post multiple angioplasties with stents, hyperlipidemia, type II diabetes mellitus, lumbar neuritis and disk herniation, who presented to the office with acute abdominal pain for three days. The patient says the pain became worst that morning. He denied any vomiting or fever, pain was located in the right lower quadrant. The patient was sent to emergency room for evaluation for acute appendicitis. The patient also had positive Rovsing sign and distention of abdomen as well as rebound tenderness in the right lower quadrant. A CAT scan of the abdomen and pelvis was done which showed enlargement of the appendix. The patient was admitted for acute appendicitis to the general medical floor telemetry. HOSPITAL COURSE: The patient was seen by Dr. Vel Licona, he is a general surgeon. Used aspirin and Plavix, was placed on hold, and he was given platelets prior to surgery. The patient's appendix was removed laparoscopically. The patient was started on IV Zosyn. He was seen by Dr. Nixon, his infectious disease specialist. After surgery, the patient complained of constipation. He was given suppositories. Constipation was most likely secondary to pain medication. The appendix was gangrene upon removal. The patient was continued on antibiotics as he continued to have pain in the abdomen, periappendicitis. The patient was afebrile. White count decreased from 11.2 to 8.3. As appendix was removed, the patient no longer need antibiotics. He was discharged home in stable condition. He will followup in the office next week. He will also followup with Dr. Licona. DISCHARGE DIAGNOSES: Acute appendicitis, status post laparoscopic appendectomy, hypertension, type II diabetes mellitus, lumbar neuritis, arthritis and coronary artery disease status post multiple angioplasties. DISCHARGE MEDICATIONS: Aspirin 81 mg once a day, Cardizem 240 mg daily, Lantus 100 units daily, Lipitor 80 mg daily, Lopressor 50 mg twice a day, Plavix 75 mg daily, lisinopril 10 mg daily, Protonix 40 mg daily and vitamin D 1000 units daily. The patient also takes Azopt and Xalatan eyedrops to the right eye. Dillon Childers MD [facility] # [id number]
== END 2018-01-29 17:11 | disposition home or self-care (01) | DRG 340 ==
LOC: ED 10:03 → ERH 13:40 → 3RNO 14:58
PROVIDERS: ADMIT Internal Medicine; ATTEND Internal Medicine
PROC: 30233R1 Transfusion of Nonautologous Platelets into Peripheral Vein, Percutaneous Approach (ICD-10-PCS; 2018-01-26)
PROC: 0DTJ4ZZ Resection of Appendix, Percutaneous Endoscopic Approach (ICD-10-PCS; principal; 2018-01-26 10:30)
DX: K35.32 Acute appendicitis with perforation, localized peritonitis, and gangrene, without abscess (principal); E11.9 Type 2 diabetes mellitus without complications; I25.119 Atherosclerotic heart disease of native coronary artery with unspecified angina pectoris; C61 Malignant neoplasm of prostate; E83.42 Hypomagnesemia; M54.16 Radiculopathy, lumbar region; I11.0 Hypertensive heart disease with heart failure; I50.9 Heart failure, unspecified; K59.00 Constipation, unspecified; K29.70 Gastritis, unspecified, without bleeding; E66.01 Morbid (severe) obesity due to excess calories; Z68.33 Body mass index [BMI] 33.0-33.9, adult; I25.2 Old myocardial infarction; Z87.891 Personal history of nicotine dependence; Z79.82 Long term (current) use of aspirin; Z79.02 Long term (current) use of antithrombotics/antiplatelets; Z79.4 Long term (current) use of insulin; Z92.3 Personal history of irradiation; Z95.5 Presence of coronary angioplasty implant and graft; Z85.51 Personal history of malignant neoplasm of bladder; Z86.14 Personal history of Methicillin resistant Staphylococcus aureus infection

== ENCOUNTER → 2018-03-25 | Day surgery (SDC) | payer MEDICARE, BC ==
[2018-03-23 14:16] VITALS: BMI 34.9
[~2018-03-25] MED LIST: Iodixanol 320 MG/ML 100 ML BOTTLE IV ONE; Iodixanol 320 MG/ML 200 ML BOTTLE IV ONE; Iohexol 350mgl/ml 50 ML ONE; Lidocaine 2% Inj (20ml) ONE; Midazolam 2 MG/2 ML VIAL ONE; Nitroglycerin 50mg in D5W 0 MG/0 ML BOTTLE IV ONE; Phenylephrine 10 mg/ml Inj ONE; Sodium Chloride 0.9% 1,000 ML IV SCH
[2018-03-25 08:21] VITALS: RESP 16; TEMP 97.9
[2018-03-25 10:53] VITALS: BP 136/71; PULSE 60; O2SAT 95
--- NOTE | 2018-03-28 08:29 | CARDCATH ---
PROCEDURE DATE: 03/25/2018 PROCEDURES: 1. Selective left and right coronary angiography. 2. Left ventriculography. 3. Right femoral arteriography. 4. Angio-Seal deployment. HISTORY: This is a 72-year-old male with known coronary artery disease, status post previous multivessel PCI, who has had worsening exertional angina. Cardiac catheterization was advised. INDICATIONS: 1. Progressive angina. 2. Known coronary artery disease. FINDINGS: HEMODYNAMICS: Aortic pressure was 126/70. Left ventricular pressure of 126/15. CORONARY ANATOMY: 1. The left mainstem was classified and had 70% mid vessel stenosis. 2. Left anterior descending artery was moderately calcified. The previously placed stent in the mid-potion had evidence of 40% in-stent restenosis and 70% in-stent restenosis. The septal family practice physician assistant was a large vessel and had a 90% proximal stenosis. The apical segment of the LAD was occluded and filled via left to left collaterals. 3. The ramus branch had a 70% proximal stenosis. This was [id number] sized left circumflex artery which had a focal 60% in-stent restenosis in mid portion. 4. The right coronary artery was large and dominant. There was a 50% lesion prior to the previously placed stent, there was a focal 60% in-stent restenosis in the stents in the mid vessel. There was also diffuse 40% in-stent restenosis in the distal stent. PDA and posterior lateral branches were relatively free of disease. LEFT VENTRICULOGRAPHY: A hand injection was performed in the left ventricle revealing normal wall motion with ejection fraction of 60%. Mitral regurgitation was not assessed. There was no aortic valve gradient noted on catheter pullback. RIGHT FEMORAL ARTERIORRHAPHY: The right femoral arteriogram was performed in the CHAVEZ projection. This revealed no evidence of significant disease and appropriate level of arterial puncture. The puncture site was then closed with deployment of an AngioSeal device. CONCLUSIONS: 1. Severe left main disease. 2. Moderate diffuse three-vessel in-stent restenosis. 3. Preserved left ventricular systolic function. RECOMMENDATIONS: Given the above findings of left main disease and moderate in-stent restenosis coronary bypass surgery is recommended at this time. Continue risk factor control and smoking abstinence was encouraged as well. Arrangements were made for bypass surgery within the next several weeks. Judah Baldwin MD CC: . MADHURI
== END | disposition home or self-care (01) ==
LOC: CATH 05:53
PROVIDERS: ATTEND Internal Medicine Cardiovascular Disease
DX: T82.858A Stenosis of other vascular prosthetic devices, implants and grafts, initial encounter (principal); Y84.0 Cardiac catheterization as the cause of abnormal reaction of the patient, or of later complication, without mention of misadventure at the time of the procedure; I25.110 Atherosclerotic heart disease of native coronary artery with unstable angina pectoris; I10 Essential (primary) hypertension; I25.2 Old myocardial infarction; E11.9 Type 2 diabetes mellitus without complications
CPT/HCPCS: 36415; 82948; 86850; 86900; 93458; 99152; C1760; C1769; C2629; J1644; J2250; J3010; J7030; Q9966; Q9967

== ENCOUNTER 2018-04-25 20:57 | Inpatient (IN) | payer OTHER, BC ==
[2018-04-25 21:50] VITALS: BMI 32.0
[2018-04-25] MEDS: Insulin Lispro (humaLOG) MEDIUM Coverage SC SCH (23:08)
[2018-04-25] MEDS: Insulin Detemir 100 units/ml Vial (Levemir) SC SCH (23:28)
[2018-04-26] MEDS: Enoxaparin 40 mg Syringe SC SCH (05:23)
[2018-04-26] MEDS: Pantoprazole 40 mg EC Tab PO SCH (05:23)
[2018-04-26] MEDS: Insulin Lispro (humaLOG) MEDIUM Coverage SC SCH ×4 (06:59→21:47)
[2018-04-26] MEDS: Insulin Lispro 1 UNITS/0.01 ML SC SCH ×3 (07:00→17:31)
[2018-04-26] MEDS: Multivitamin With Minerals Tab PO SCH (08:27)
[2018-04-26] MEDS: Magnesium Oxide 400 mg Tab UD PO SCH ×2 (10:15→17:25)
[2018-04-26] MEDS: Insulin Detemir 100 units/ml Vial (Levemir) SC SCH ×2 (12:10→21:47)
--- NOTE | 2018-04-26 12:58 | HP ---
DATE OF EXAM: 04/26/2018 HISTORY OF PRESENT ILLNESS: The patient is in the Transitional Care Unit [facility] in [facility]. The patient was transferred from [place], [place] after cardiac surgery. The patient had CABG. The patient's past history is significant, he has history of coronary artery disease, has multiple angioplasties in the past. The patient also has history of hypertension, diabetes mellitus, degenerative arthritis. The patient is seen in the TRCU, lying in bed, resting. PHYSICAL EXAMINATION: VITAL SIGNS: His pulse is 101, blood pressure 160/80, and respirations are 20. HEENT: Head is normocephalic. NECK: Thyroid is not enlarged. Carotid pulses are present. The lymph nodes are negative in the neck. LUNGS: Trachea is central. Breath sounds are vesicular. No adventitious sounds are heard. HEART: Normal sinus rhythm, sinus tachycardia. ABDOMEN: Soft. Liver and spleen not palpable. Abdomen is distended; he has truncal obesity. CENTRAL NERVOUS SYSTEM: The patient has no focal neurological deficit, but he has past history of peripheral neuropathy. The patient has scar in the sternal area and multiple small surgical wounds on the chest wall and abdomen. MEDICATIONS: He is on aspirin 81 mg daily. The patient is on Colace 100 mg b.i.d., amiodarone 200 mg daily, Desyrel 100 mg daily, lactulose for constipation, Flomax 0.4 mg daily, insulin coverage for diabetes. The patient is on insulin Humalog and also Levemir. The patient is on Lipitor 40 mg daily, metoprolol 25 mg daily, Lovenox 40 mg subcutaneous daily for DVT prophylaxis. The patient is on magnesium oxide 400 mg b.i.d., Plavix 75 mg daily, pantoprazole 40 mg daily, multivitamin, lisinopril 5 mg daily, Zofran for nausea p.r.n. The patient is on heart healthy diet. LABORATORY DATA: His lab work not ordered. His blood sugar was 157 this morning. We will order blood work to be done in the morning tomorrow. IMPRESSION AND PLAN: The patient will be advised to have physical therapy, ambulation and we will continue current management. Dr. Baldwin, Senior Solutions Architect on case, he will be seeing the patient on followup. Oliva Childers MD [facility] # [id number] MADHURI
--- NOTE | 2018-04-27 01:32 | CON ---
DATE: 04/26/2018 REQUESTING PHYSICIAN: Dr. Childers REASON FOR CONSULTATION: Cardiology followup. HISTORY: This is a 72-year-old man transferred from [facility] following recent coronary artery bypass surgery. He had gait instability and difficulty walking postoperatively, and further rehabilitation was advised. PAST HISTORY: Notable for the problems mentioned above. He has undergone multivessel PCI in the past. He also has a history of hypertension, diabetes, tobacco abuse and arthritis. He also has chronic morbid obesity. CURRENT MEDICATIONS: Include aspirin, amiodarone 200 mg daily, trazodone at bedtime, Flomax, insulin, Lipitor 40 mg daily, metoprolol 25 mg b.i.d., Lovenox, magnesium oxide, Plavix, Protonix 40 mg daily, Zestril 5 mg daily. OBJECTIVE: GENERAL: He is an overweight middle-aged man. VITAL SIGNS: His blood pressure is 122/60 with a pulse of 90, respirations are 16. He is afebrile. HEENT: Normocephalic, atraumatic. NECK: Supple. No JVD noted. CHEST: Clear to auscultation and percussion. Sternal wound healing well. HEART: PMI normal position. No pathological gallops noted. ABDOMEN: Soft, obese, nontender, normoactive bowel sounds. EXTREMITIES: No edema. Dressings were present over his vein harvest sites. SKIN: Warm and dry. PSYCHIATRIC: Normal mood and affect. NEUROLOGIC: No gross motor or sensory deficits appreciable. DIAGNOSTIC DATA: Blood work is pending. IMPRESSION: 1. Coronary artery disease, status post recent coronary bypass surgery, progressing well. 2. History of hypertension and diabetes. 3. History of tobacco abuse. 4. Rest of problems as noted. 5. He did have paroxysmal atrial fibrillation postoperatively; however, this has resolved and improved. RECOMMENDATIONS: His current medications should continue. Aggressive physical therapy measures are advised. The need for smoking abstinence was discussed with him. We will be happy to follow along through his hospital course as needed. Thank you for this consultation. Judah Baldwin MD [facility] # [id number]
[2018-04-27] MEDS: Enoxaparin 40 mg Syringe SC SCH (05:59)
[2018-04-27] MEDS: Pantoprazole 40 mg EC Tab PO SCH (06:00)
[2018-04-27] MEDS: Insulin Lispro (humaLOG) MEDIUM Coverage SC SCH ×4 (06:51→21:21)
[2018-04-27] MEDS: Insulin Lispro 1 UNITS/0.01 ML SC SCH ×3 (06:52→17:30)
[2018-04-27 08:12] LABS: BASO # 0.01 K/mm3 (0.0-2.0); BASO % 0.1 % (0.0-3.0); EOS # 0.2 (0.0-0.7); EOS % 2.5 % (1.5-5.0); GRAN # 4.95 (1.4-6.5); GRAN % 70.1 % (50.0-68.0); HEMOGLOBIN 10.9 g/dL (14.0-18.0); LYMPH # 1.5 (1.2-3.4); LYMPH % 21.5 % (22.0-35.0); MEAN CELL VOLUME 91.8 fl (80.0-105.0); MEAN CORPUSCULAR HEMOGLOBIN 29.7 pg (25.0-35.0); MEAN CORPUSCULAR HGB CONC 32.3 g/dl (31.0-37.0); MEAN PLATELET VOLUME 10.3 fl (7.0-11.0); MONO # 0.4 (0.1-0.6); MONO % 5.8 % (1.0-6.0); RBC 3.67 10^6/uL (3.5-6.1); RED CELL DISTRIBUTION WIDTH 13.2 % (11.5-14.5); WHITE BLOOD COUNT 7.1 10^3/uL (4.5-11.0)
[2018-04-27] MEDS: Multivitamin With Minerals Tab PO SCH (08:13)
[2018-04-27 08:32] LABS: ALB/GLOB RATIO 1.2 (1.1-1.8); ALBUMIN 3.8 g/dL (3.0-4.8); ALT/SGPT 54 U/L (7-56); AST/SGOT 51 U/L (17-59); BLOOD UREA NITROGEN 20 mg/dL (7-21); CALCIUM 9.4 mg/dL (8.4-10.5); GFR NON-AFRICAN AMERICAN > 60
--- NOTE | 2018-04-27 09:13 | PN ---
DATE: 04/27/2018 LOCATION: The patient is in the Transitional Care Unit, room 322, bed 1. SUBJECTIVE: The patient is seen this morning. He is eating his breakfast. He feels better he says than yesterday. PHYSICAL EXAMINATION: VITAL SIGNS: His pulse is 90 per minute, blood pressure 134/70 and respirations 20 per minute. The patient's O2 sat is 97% on room air. HEENT: The patient's head is normocephalic. NECK: Thyroid is not enlarged. Carotid pulses are present. HEART: Normal sinus rhythm. S1 and S2, present. Sinus tachycardia. LUNGS: Trachea is central. Breath sound vesicular. No adventitious sounds. ABDOMEN: Soft. Liver and spleen not palpable. CENTRAL NERVOUS SYSTEM: The patient has no focal neurological deficit. The chest shows evidence of cardiac surgery incision site. LABORATORY DATA: The patient's blood work has been repeated today. He will get a CBC, chemistry and CMP. MEDICATIONS: The patient is on aspirin 81 mg daily. The patient is on Colace 100 mg three times daily, amiodarone 200 mg daily, trazodone 100 mg at night. The patient gets alkaline for constipation, lactulose for constipation. The patient is on Flomax 0.4 mg daily and insulin coverage for diabetes. The patient gets Humalog with meals and Levemir twice a day. The patient is getting Lipitor 40 mg daily, metoprolol 25 mg once a day, Lovenox 40 mg subcutaneous daily and magnesium oxide 40 mg twice daily, Plavix 75 mg daily, pantoprazole 40 mg daily and multivitamin. The patient gets lisinopril 5 mg daily. DIET: Heart healthy diet diabetic. PLAN: The patient is advised to participate in physical therapy and rehabilitation. His clinical condition seem to be improving and stable. Oliva Childers MD MTDD
--- NOTE | 2018-04-27 10:07 | PN ---
DATE: 04/27/2018 SUBJECTIVE: Patient is seen walking with a cane on the Transitional Care Unit. He is feeling somewhat better. He is anxious to go home. CURRENT MEDICATIONS: His current medications include aspirin, amiodarone 200 mg daily, trazodone at bedtime, lactulose, Flomax, insulin, Lipitor 40 mg daily metoprolol 25 mg twice daily, Lovenox, magnesium supplement, Plavix 75 mg daily, Protonix, and Zestril 5 mg daily. PHYSICAL EXAMINATION: GENERAL: He is a overweight middle-aged man. VITAL SIGNS: His blood pressure is 134/78 with a pulse of 90 and regular, respirations are 16. He is afebrile. HEENT: No JVD. CHEST: Few scattered rhonchi noted. HEART: Normal first and second sounds. No pathological gallops noted. ABDOMEN: Soft, nontender with no active bowel sounds. EXTREMITIES: No edema. SKIN: External wound healing nicely. DIAGNOSTIC DATA: Potassium 4.5, urine creatinine is 20 and 0.9. White count 7.1, hematocrit 10.9 and 33.7, platelet count of 272,000. Blood glucose ranges from 116-227. IMPRESSION: 1. Coronary disease status post recent coronary bypass surgery, clinically improved. 2. Gait instability, slowly improving. 3. History of hypertension and diabetes. 4. History of tobacco abuse. 5. Obesity. 6. Postoperative paroxysmal atrial fibrillation, remains on amiodarone for now. RECOMMENDATIONS: Plavix can be discontinued at this time. Rest of his medications should continue unchanged. He is encouraged to increase his activities and participate in rehabilitation. He was encouraged to remain in hospital for completion of his rehabilitation stay as well. Continue smoking absence was advised. We will follow along as needed. Judah Baldwin MD MADHURI
[2018-04-27] MEDS: Magnesium Oxide 400 mg Tab UD PO SCH ×2 (10:42→17:36)
[2018-04-27] MEDS: Insulin Detemir 100 units/ml Vial (Levemir) SC SCH ×2 (11:21→21:25)
[2018-04-28] MEDS: Enoxaparin 40 mg Syringe SC SCH (05:25)
[2018-04-28] MEDS: Pantoprazole 40 mg EC Tab PO SCH (05:25)
[2018-04-28] MEDS: Insulin Lispro (humaLOG) MEDIUM Coverage SC SCH ×4 (06:50→21:33)
[2018-04-28] MEDS: Insulin Lispro 1 UNITS/0.01 ML SC SCH ×3 (07:33→17:30)
[2018-04-28] MEDS: Multivitamin With Minerals Tab PO SCH (08:19)
--- NOTE | 2018-04-28 10:58 | PN ---
DATE: 04/28/2018 LOCATION: He is in the Transitional Care Unit, [facility]. The patient is in room 322, bed 1. SUBJECTIVE: He was admitted and transferred from [facility] after cardiac surgery. The patient's past history is significant in that he has had multiple angioplasties for angina, acute coronary syndrome. The patient has history of diabetes, hypertension, osteoarthritis and recurrent carbuncles. PHYSICAL EXAMINATION GENERAL: The patient is seen this morning. He is comfortable, sitting down eating his breakfast. VITAL SIGNS: The pulse is 84, blood pressure 123/76 and respirations 18. HEENT: The patient's head is normocephalic. NECK: Thyroid is not enlarged. Carotid pulses are present. HEART: Normal sinus rhythm. S1 and S2 present. No murmurs. ABDOMEN: Soft. Liver and spleen not palpable. LUNGS: Clear. CENTRAL NERVOUS SYSTEM: No focal deficit. LABORATORY DATA: Hemoglobin is 10.9. The patient's chemistry; blood sugar is 125 this morning. The patient's sodium is 133, creatinine is 0.9 and BUN is 20. The patient's other chemical parameters are within normal range. MEDICATIONS: The patient's recent medication consists of aspirin 81 mg daily. The patient is on Colace for constipation. The patient is also on Dulcolax for constipation, lactulose for constipation. The patient is on Flomax for BPH. Amiodarone for cardiac arrhythmia. The patient is on insulin coverage. Lipitor 40 mg daily and metoprolol 25 mg daily. Lovenox for prophylaxis for DVT. The patient is on magnesium oxide b.i.d., pantoprazole 40 mg daily for gastritis and reflux. ASSESSMENT AND PLAN: The patient's overall condition is improved. The lesions on the chest wall are improving at the incision site for cardiac surgery. The patient's overall prognosis is guarded. Condition is improving. Oliva Childers MD MTDD
[2018-04-28] MEDS: Magnesium Oxide 400 mg Tab UD PO SCH ×2 (11:00→17:57)
[2018-04-28] MEDS: Insulin Detemir 100 units/ml Vial (Levemir) SC SCH ×2 (11:00→21:33)
[2018-04-28 16:51] VITALS: RESP 18; TEMP 98; O2SAT 97
[2018-04-28] MEDS ORDERED: Oxycodone/Acetaminophen 5/325 mg Tab PO STA (22:02)
[2018-04-29] MEDS: Enoxaparin 40 mg Syringe SC SCH (05:42)
[2018-04-29] MEDS: Pantoprazole 40 mg EC Tab PO SCH (05:42)
[2018-04-29] MEDS: Insulin Lispro 1 UNITS/0.01 ML SC SCH (06:40)
[2018-04-29] MEDS: Insulin Lispro (humaLOG) MEDIUM Coverage SC SCH (06:41)
[2018-04-29] MEDS: Multivitamin With Minerals Tab PO SCH (08:10)
[2018-04-29 08:11] VITALS: BP 137/78; PULSE 75
[2018-04-29] MEDS: Insulin Detemir 100 units/ml Vial (Levemir) SC SCH (09:05)
[2018-04-29] MEDS: Magnesium Oxide 400 mg Tab UD PO SCH (09:05)
--- NOTE | 2018-04-29 09:49 | PN ---
DATE: 04/29/2018 LOCATION: The patient is in the Transitional Care Unit, room 322,bed 1. SUBJECTIVE: The patient is discharged today. The patient was admitted from [facility] after cardiac surgery. The patient's past history is significant in that he has history of coronary artery disease and multiple angioplasties. The patient has had history of recurrent angina, history of diabetes mellitus, osteoarthritis, recurrent skin infection (carbuncles) and uncontrolled diabetes. PHYSICAL EXAMINATION: VITAL SIGNS: This morning, pulse is 75, blood pressure 137/78, respirations are 18 per minute. GENERAL: The patient is comfortable, appears in good condition. HEART: Normal sinus rhythm. S1 and S2, present. LUNGS: Clear. ABDOMEN: Soft. Liver and spleen not palpable. CENTRAL NERVOUS SYSTEM: No focal deficit. The patient is able to ambulate without difficulty. MEDICATIONS: The patient's medications were reviewed with the nurse and the patient. The patient's list of medication consists of aspirin, the patient has to take 81 mg daily. The patient will be on amiodarone 200 mg daily, trazodone 100 mg daily and Flomax 0.4 mg daily. The patient is on insulin coverage. The patient will get Lipitor 40 mg daily, metoprolol 25 mg b.i.d., we will give the patient metoprolol 50 mg daily that is the dose that patient had before, he will continue to take that dose. The patient is on pantoprazole 40 mg daily, magnesium oxide 400 mg b.i.d., the patient will get lisinopril 20 mg daily and Plavix 75 mg daily. The patient is on heart healthy diabetic diet. The patient has an appointment in the office for 1 week from now, next Wednesday. The patient is advised regarding staying on a strict diet and not to gain weight, to monitor his weight every third day and the patient is advised to exercise as tolerated at this point. Eventually, the patient will be put on cardiac rehab for secondary prevention of heart disease. Oliva Childers MD MADHURI
--- NOTE | 2018-04-29 23:14 | PN ---
DATE: 04/29/2018 SUBJECTIVE: The patient is seen sitting in a chair on transitional care unit. He feels well. He is anxious to go home today. He did have some sternal pain last evening but feels better at this time. His current medications include aspirin, amiodarone 200 mg daily, trazodone at bedtime, Flomax, insulin, Lipitor 40 mg daily, metoprolol 25 mg b.i.d., Protonix, Zestril. PHYSICAL EXAMINATION: GENERAL: He is an overweight middle-aged man. VITAL SIGNS: Blood pressure is 130/70 with a pulse of 70 and regular, respirations are 16. He is afebrile. HEENT: No JVD. CHEST: Few scattered rhonchi heard. HEART: No pathological murmurs or gallops noted. ABDOMEN: Soft, obese, nontender. Normoactive bowel sounds. EXTREMITIES: No edema. DIAGNOSTIC DATA: No blood work pending from today. IMPRESSION: 1. Coronary artery disease, status post recent coronary bypass surgery, recuperating well. 2. Gait instability, improved. 3. History of hypertension and diabetes. 4. History of tobacco abuse. 5. Obesity. 6. Postoperative paroxysmal atrial fibrillation, remains in sinus rhythm, on oral amiodarone therapy. RECOMMENDATIONS: The patient will continue on his current medications except Plavix can be discontinued at this time. From a cardiac standpoint, he is stable for discharge home. Close outpatient followup will be arranged. Aggressive risk factor control was advised. Judah Baldwin MD
--- NOTE | 2018-05-01 22:36 | DS ---
BRIEF HISTORY: This is a 72-year-old male with history of coronary artery disease with multiple angioplasties, hypertension, diabetes mellitus, degenerative arthritis, who was transferred from [place], [place] after coronary artery bypass surgery to the Transitional Care Unit at the [facility] for rehab. The patient has scar in the sternal area and is complaining of some weakness and difficulty in walking. HOSPITAL COURSE: The patient was admitted to the Transitional Care Unit for rehab. He was started on physical therapy. The patient improved quickly. In physical therapy, he was able to walk stairs with no complications. The patient wanted to go home. He was discharged home in improved condition. DISCHARGE DIAGNOSES: Coronary artery disease status post coronary artery bypass graft, hypertension, diabetes, arthritis. DISCHARGE MEDICATIONS: Aspirin 325 mg once a day, Lantus, Lipitor 80 mg daily, Novolog 20 units subcutaneous twice a day, Plavix 75 mg daily, amiodarone 200 mg daily, trazodone 100 mg at night, Flomax 0.4 mg daily, Lopressor 25 mg twice a day, magnesium oxide 400 mg twice a day, Protonix 40 mg daily, and Zestril 5 mg daily. FOLLOWUP: The patient will follow up in the office in 1 week. Dillon Childers MD
== END 2018-04-29 11:22 | disposition home or self-care (01) | DRG 556 ==
LOC: TRCU 20:57
PROVIDERS: ADMIT Internal Medicine; ATTEND Internal Medicine
PROC: F07Z9ZZ Gait Training/Functional Ambulation Treatment (ICD-10-PCS; principal; 2018-04-26)
PROC: F08Z4ZZ Home Management Treatment (ICD-10-PCS; 2018-04-26)
DX: R26.2 Difficulty in walking, not elsewhere classified (principal); R53.1 Weakness; I25.10 Atherosclerotic heart disease of native coronary artery without angina pectoris; Z95.1 Presence of aortocoronary bypass graft; I10 Essential (primary) hypertension; I48.0 Paroxysmal atrial fibrillation; E11.9 Type 2 diabetes mellitus without complications; E66.9 Obesity, unspecified; Z68.31 Body mass index [BMI] 31.0-31.9, adult; K59.00 Constipation, unspecified; N40.0 Benign prostatic hyperplasia without lower urinary tract symptoms; Z87.891 Personal history of nicotine dependence; Z98.61 Coronary angioplasty status